=== PATIENT | female | born 1980 | race Caucasian/White ===

== ENCOUNTER 2018-07-04 14:45 | Emergency (ER) | payer MEDICARE, MEDICAID, SELFPAY ==
[2018-07-04] VITALS (46 sets, daily range): BP systolic 60–136; BP diastolic 31–82; PULSE 82–132; RESP 11–33; TEMP 36.5–37.5; O2SAT 91–99
--- NOTE | 2018-07-04 14:44 | DI.CT_ITS ---
SYMPTOM/DIAGNOSIS: FACIAL CONTUSION, DRUNK NONCONTRAST HEAD CT: Comparison is made with 05/23/18. No intracranial hemorrhage, midline shift or mass effect is identified. The ventricles and sulci are consistent with the patient's age. There is mild mucosal thickening in the maxillary sinuses bilaterally. No fluid levels are seen in the sinuses. The remaining visualized paranasal sinuses are clear. The mastoid air cells are well pneumatized. The calvarium is intact. There is mild nas-orbital soft tissue swelling seen bilaterally, left greater than right. IMPRESSION: 1. No skull fracture or acute intracranial process. 2. Mild bilateral nas-orbital soft tissue swelling. CERVICAL SPINE CT: Multiple contiguous axial images of the cervical spine were obtained. Sagittal and coronal reformatted images were evaluated on the Siemens work station. Comparison examination is 05/23/18. There is normal alignment of the cervical spine. No acute fractures or subluxations are seen. The prevertebral soft tissues are unremarkable. No central spinal canal stenosis is present. IMPRESSION: No acute fractures or subluxations of the cervical spine. FACIAL CT: Multiple contiguous axial images of the face were obtained. Sagittal and coronal reformatted images were evaluated on the Siemens work station. Comparison CT scan of the head is 05/23/18. There is no acute fracture or dislocation seen in the face. There is mild nas-orbital soft tissue swelling bilaterally, left greater than right. The orbits and retro-orbital soft tissues are unremarkable. There is mild mucosal thickening in the maxillary sinuses. The remaining visualized paranasal sinuses are clear. No fluid levels are present. The temporomandibular joints are intact. IMPRESSION: No acute fracture or dislocation of the face. Nas-orbital soft tissue swelling bilaterally.
--- NOTE | 2018-07-04 15:08 | ED.GENADUL_ITS ---
Discharge Plan Disposition Patient Disposition: [facility] Condition: Stable Discharge Details Chief Complaint: ETOHWithdr Clinical Impression: Delirium tremens, Alcohol withdrawal Reason For Visit: DAYDAY Primary Care Provider: DALLAS ASH ED Provider: Owen Li Home Meds and New Rx's Prescriptions: No Action pregabalin [Lyrica] 75 MG capsule 75 mg PO BID RF: 0 ondansetron 4 MG tablet,disintegrating 4 mg PO Q6H PRN PRNQty: 20 RF: 0 clonidine HCl 0.1 mg Tablet 0.1 mg PO BID RF: 0 Medical Decision Making This is a pleasant 37-year-old female with a past medical history of severe alcohol use, and delirium tremens. She was recently discharged from rehab and began drinking immediately. She drinks 1 gallon of vodka per day. She was found outside intoxicated late last night, and was brought to the police department for sobering. However while they are they are concerned that she was not safe for their facility, and sent to the ER for further evaluation. On exam the patient does appear notably agitated, tachycardic, and suffering from early DTs. We will start Ativan, rehydrate, banana bag, get a CT of her head neck and face for abrasions that are noted from a fall last night. We will update her tetanus. 5 PM Patient's laboratory workup has returned relatively benign, bicarb is slightly low at 18, electrolytes are normal, anion gap is 22 most likely secondary to her chronic alcohol use, dehydration, normal TSH, and alcohol of 75.9. The patient has tolerated the Ativan very well, however she has been requiring re- dosing of 2 mg doses every 1-1.5 hours. Because of the need for continued Ativan, the concern for DTs, and the patient's concerning history she will require admission. Unfortunately we have no beds available at this time, and the patient will require transfer. We did contact [facility] as this is close to the patient's home, I spoke with Dr. Grimm and she agrees with the assessment and plan, and agreed to accept the patient to the MedSurg/stepdown unit at [facility]. Patient will be transferred by [facility]. I have extensively reviewed the treatment plan with the patient. I have addressed all patient concerns at this time. I have also discussed the plan with the admitting physician and they agree with the current assessment and plan and have agreed to assume responsibility for the patient. All parties demonstrate verbal understanding and agreement with our assessment and plan at this time. IMPRESSION: 1. No acute fractures. 2. Mild soft tissue swelling and subcutaneous contusion is seen in the periorbital regions bilaterally especially on the left. 3. Minimal mucosal thickening of the maxillary sinuses bilaterally. HPI General Date/Time Provider Initiated Documentation: 07/04/18 14:48 . HPI Narrative: This is a 37-year-old female with a past medical history of thrombocytopenia, delirium tremens, alcohol withdrawals, who drinks 1 gallon of vodka per day, and past surgical history of a who presents today for evaluation of DTs. Patient states that she was recently in rehab, but is soon as she left that she started drinking again. Patient states that last night she fell and hit her face, EMS was called and the patient was eventually brought to skilled nursing for sobering. Penitentiary they were concerned that the patient may end to be undergoing DTs, and she was sent here for further evaluation. Currently the patient is extremely anxious, jittery, nauseous. She does admit to some facial pain, denies any signal blurry vision, double vision, headache, numbness tingling or weakness. She denies any other complaints at this time. No other modifying factors. She denies any pertinent family history, or any recent surgical history. Related Data Home Medications Medication Instructions Recorded Confirmed ondansetron 4 mg PO Q6H PRN PRN #20 tabef 10/16/15 05/23/18 pregabalin [Lyrica] 75 mg PO BID 10/16/15 05/23/18 clonidine HCl 0.1 mg PO BID 05/23/18 05/23/18 Previous Rx's Medication Instructions Recorded ondansetron 4 mg PO Q6H PRN PRN #20 tabef 10/16/15 Allergies Allergy/AdvReac Type Severity Reaction Status Date / Time buspirone [From BuSpar] Allergy Unverified 05/23/18 08:04 General Stated Complaint: ETOHWithdr ALBIN: 2 Review of Systems Review of Systems All systems reviewed & are unremarkable except as noted in HPI and below Exam Narrative Exam Narrative: 1.Const: Well-nourished, Well-developed, appearing stated age 2.Eyes: PERRL, no conjunctival injection, and symmetrical lids. 3.ENT: Atraumatic external nose and ears. Moist MM. Patient does demonstrate mild bruising around the inferior orbit, and mild abrasions over the cheeks bilaterally. No evidence of ocular entrapment. Neck: Symmetric, trachea midline , No thyromegaly. There is no evidence of raccoon eyes, welch sign, CSF rhinorrhea, mastoid tenderness, cranial crepitus, hemotympanum, exophthalmos, or hyphema. Patient demonstrates intact dentition with no signs of tooth avulsion or fracture, no signs of jaw deformity, no evidence of a LeFort's fracture, with an intact palate, nose and orbital region. There is no evidence of a nasal septal hematoma. No proptosis. Jaw closes symmetrically. Airway is clear. 4.CVS: +S1/S2, No murmurs or gallops. Peripheral pulses 2+ and equal in all extremities. Brisk capillary refill in all extremities. 5.RESP: Unlabored respiratory effort. Clear to auscultation bilaterally. No wheezes rales or rhonchi 6.GI: Soft, Nontender/Nondistended, No hepatosplenomegaly. No guarding or rebound. 7.MSK: Normocephalic/Atraumatic, Extremities w/o deformity or ttp No cyanosis or clubbing, Normal movement of all extremities no midline tenderness to palpation over the CTLS spine. Normal ROM in flexion, extension, side bend, and rotation. Patient has +5 out of 5 strength in the lower extremities in dorsiflexion and plantarflexion, knee flexion and extension, hip flexion and extension. There is +2 over 2 dorsalis pedis pulses bilaterally. There is normal sensation to the skin with light touch at the foot, knee, and hip. Normal saddle sensation. Good sensation over the deep sural nerve area bilaterally. Rectal exam deferred. Reflexes are +2 over 4 in the patellar reflex bilaterally. +5 out of 5 strength in the medial, ulnar, radial nerve distribution bilaterally in the hands as well as intact light touch sensation to these dermatomes on the hands 8.Skin: Warm, Dry. No rashes or lesions. 9.Neuro: recruitment specialist II-XII grossly intact. Sensation grossly intact, no focal neurologic deficits. 10.Psych: (AAO) x3. Appropriate mood and affect. Notably intoxicated. Course Vital Signs Temperature 36.5 C 07/04/18 14:49 Pulse 127 H 07/04/18 14:49 Respiratory Rate 30 H 07/04/18 14:49 Blood Pressure 120/82 07/04/18 14:49 Pulse Oximetry 98 07/04/18 14:49 Temperature 36.5 C 07/04/18 14:49 Temperature Source Temporal Artery Scan 07/04/18 14:49 Pulse 127 H 07/04/18 14:49 Respiratory Rate 30 H 07/04/18 14:49 Blood Pressure 120/82 07/04/18 14:49 Blood Pressure Position Supine 07/04/18 14:49 Pulse Oximetry 98 07/04/18 14:49 Oxygen Delivery Method Room Air 07/04/18 14:49 Oxygen Flow Rate 0 07/04/18 14:49 Pain Level 10 07/04/18 14:49
[2018-07-04 15:13] LABS: Abs Immature Grans 0.02 k/cumm (0.0-0.09); Absolute Basophil Count 0.01 k/cumm (0.0-0.2); Absolute Lymphocyte Count 1.71 k/cumm (1.2-3.4); Absolute Monocyte Count 0.42 k/cumm (0.11-0.7); Absolute Neutrophil Count 5.07 k/cumm (1.2-6.7); Basophils % 0.1; HCT 42.8 % (36.0-46.0); HGB 14.8 g/dL (12.0-15.5); Immature Grans % 0.3; Lymphocytes % 23.7; Mean Corp. HGB Concentration 34.6 g/dL (32.0-36.0); Mean Corpuscular Hemoglobin 33.2 pg (27.0-33.0); Monocytes % 5.8; Neutrophils % 70.1; Platelet Count 172 x1000/uL (130-400); RBC 4.46 m/cumm (4.00-5.20); RBC Distribution Width 13.6 % (11.7-14.6); White Blood Cell Count 7.23 k/cumm (4.4-10.8)
[2018-07-04] MEDS: Lactated Ringers 1,000 ML 1000 ML IV (15:14)
[2018-07-04] MEDS: LORazepam 2 MG/ML VIAL IM (15:15)
[2018-07-04] MEDS: Ondansetron 4 MG/2 ML VIAL IVP (15:15)
[2018-07-04] MEDS: MAGNESIUM SULFATE 8.12 MEQ, MULTIVITAMIN 10 ML, THIAMINE 100 MG, FOLIC ACID 1 MG in Nor... 168.867 MG IV (15:15)
[2018-07-04 15:25] LABS: ALT 23 U/L (12-78); AST 30 U/L (15-37); Alkaline Phosphatase 101 U/L (46-116); Anion Gap 22.8 mmol/L (3-11); BUN 8 mg/dL (7-18); Bilirubin, Total 0.5 mg/dL (0.2-1.0); CO2 18.2 mmol/L (21.0-32.0); CREATININE 0.57 mg/dL (0.55-1.02); Calcium 8.4 mg/dL (8.5-10.1); Chloride 97 mmol/L (98-107); ETHANOL BLOOD 75.9 mg/dL (<3); Glucose 86 mg/dL (70-100); Potassium 3.6 mmol/L (3.5-5.1); Sodium 138 mmol/L (136-145); Total Protein 8.1 g/dL (6.4-8.2)
[2018-07-04 15:47] LABS: TSH 0.78 uIU/mL (0.358-3.74)
[2018-07-04] MEDS: LORazepam 2 MG/ML VIAL IVP ×2 (16:12→18:58)
--- NOTE | 2018-07-04 16:32 | DI.VRAD_ITS ---
EXAM: CT Head Without Intravenous Contrast EXAM DATE/TIME: 07/04/2018 3:19 PM CLINICAL HISTORY: 37 years old, female; Injury or trauma; Fall; Initial encounter; Blunt trauma (contusions or hematomas) TECHNIQUE: Axial computed tomography images of the head/brain without intravenous contrast. Coronal and sagittal reformatted images were created and reviewed. COMPARISON: No relevant prior studies available. FINDINGS: Brain: Normal. No hemorrhage. No significant white matter disease. No edema. Ventricles: Normal. No ventriculomegaly. Bones/joints: Normal. No acute fracture. Sinuses: Minimal mucosal thickening of the maxillary sinuses bilaterally. No acute sinusitis. Mastoid air cells: Normal as visualized. No mastoid effusion. Soft tissues: Mild soft tissue swelling and subcutaneous contusion is seen in the periorbital regions bilaterally especially on the left. IMPRESSION: 1. No acute intracranial abnormality. The brain appears normal. 2. Mild soft tissue swelling and subcutaneous contusion is seen in the periorbital regions bilaterally especially on the left. 3. Minimal mucosal thickening of the maxillary sinuses bilaterally. EXAM: CT Maxillofacial Without Intravenous Contrast EXAM DATE/TIME: 07/04/2018 3:19 PM CLINICAL HISTORY: 37 years old, female; Injury or trauma; Fall; Initial encounter; Blunt trauma (contusions or hematomas) TECHNIQUE: Axial computed tomography images of the face without intravenous contrast. Coronal and sagittal reformatted images were created and reviewed. COMPARISON: No relevant prior studies available. FINDINGS: Bones/joints: No acute maxillofacial or orbital fracture. The mandible and temporomandibular joints are normal. Soft tissues: Mild soft tissue swelling and subcutaneous contusion is seen in the periorbital regions bilaterally especially on the left. Orbits: No acute intraorbital abnormality. Globes are unremarkable Sinuses: Minimal mucosal thickening of the maxillary sinuses bilaterally. No air-fluid levels. IMPRESSION: 1. No acute fractures. 2. Mild soft tissue swelling and subcutaneous contusion is seen in the periorbital regions bilaterally especially on the left. 3. Minimal mucosal thickening of the maxillary sinuses bilaterally. EXAM: CT Cervical Spine Without Intravenous Contrast EXAM DATE/TIME: 07/04/2018 3:19 PM CLINICAL HISTORY: 37 years old, female; Injury or trauma; Fall; Initial encounter; Blunt trauma (contusions or hematomas) TECHNIQUE: Axial computed tomography images of the cervical spine without intravenous contrast. Coronal and sagittal reformatted images were created and reviewed. COMPARISON: No relevant prior studies available. FINDINGS: Vertebrae: No acute fracture. Normal alignment. Discs/Spinal canal/Neural foramina: No spinal stenosis. No neural foraminal narrowing. Soft tissues: Unremarkable. IMPRESSION: No acute findings. Dictated and Authenticated by: Yonny Chaney MD. Ordering:RANDEE MCCLELLAN MD
[2018-07-04] MEDS: Normal Saline 1,000 ML 1000 ML IV (16:54)
== END 2018-07-04 19:19 | disposition short-term general hospital (02) ==
PROVIDERS: Emergency Provider Student in an Organized Health Care Education/Training Program; PCP Family Medicine
DX: F10.231 Alcohol dependence with withdrawal delirium (principal); Y90.3 Blood alcohol level of 60-79 mg/100 ml; S00.12XA Contusion of left eyelid and periocular area, initial encounter; W18.30XA Fall on same level, unspecified, initial encounter
CPT/HCPCS: 36415; 80053; 96361; 96365; 96366; 96372; 96375; 96376; 99285; 70450; 70486; 72125; 80320; 84443; 85025; J2060; J2405

== ENCOUNTER 2018-08-12 09:08 | Inpatient (IN) | payer MEDICARE, MEDICAID, SELFPAY ==
[2018-08-12] VITALS (34 sets, daily range): BP systolic 105–136; BP diastolic 61–78; PULSE 78–134; RESP 12–48; TEMP 36.5–38.1; O2SAT 94–100
--- NOTE | 2018-08-12 09:28 | W.ED.GENAD ---
Discharge Plan Disposition Patient Disposition: [facility] Condition: Fair Discharge Details Chief Complaint: ETOHWithdr Clinical Impression: Alcohol withdrawal, Alcoholic ketoacidosis, Vomiting, Chronic alcohol abuse Reason For Visit: ALCOHOL WITHDRAWL Admit Date/Time: 08/12/18 12:52 Admit Provider: Cielo Woodward Attending Provider: Cielo Woodward Primary Care Provider: DALLAS ASH ED Provider: Ely Lao Discharge Data Discharge Date/Time-TO BE ENTERED AT DEPARTURE: 08/12/18 12:52 Medical Decision Making 37yo F presents from police protective custody w/ a h/o chronic alcohol abuse and DT's who presents for concern for alcohol withdrawal. Last drink yesterday afternoon. Heart rate 110s. Blood pressure normal. Remainder vitals within normal limits. Patient appears mildly diaphoretic with mild-moderate shaking of hands. Main concern for mild alcohol withdrawal. Will place an IV, bolus IVF, ativan prn, labs, ekg, cxr, ua, UDS. EKG notes a rate of 95, sinus, T wave inversion noted in V2. No acute ST elevation or depression. QTc 475. QRS 86. 1110 --labs reviewed and note sodium 133, bicarb 16, anion gap 21, glucose 49, magnesium 1.6, troponin negative. Alcohol negative. Appears c/w alcoholic ketoacidosis. Will give pt food. Unable to obtain a urine and urine , will send for serum . Pt's HR improved to 90s and symptoms improved after ativan. HR now back to 100-110s. Will give more IVF, dose of zofran, another dose of ativan. 1130 -- d/w hospitalist - accepts pt for admission. Pt sat up while eating and her HR increased to 120s. EKG done at noted a HR of 125, sinus, no acute ST findings. QTc 490. QRS 84. Medical Records Medical records reviewed: Yes I reviewed the patient's medical records. Lab Data Lab results reviewed: Yes I reviewed the patient's lab results. Laboratory Tests Range/Units 08/12/18 08/12/18 08/12/18 10:20 10:20 10:20 WBC (4.4-10.8) k/cumm 6.06 RBC (4.00-5.20) m/cumm 4.21 Hgb (12.0-15.5) g/dL 13.4 Hct (36.0-46.0) % 40.6 MCV (80-95) fL 96.4 H MCH (27.0-33.0) pg 31.8 MCHC (32.0-36.0) g/dL 33.0 RDW (11.7-14.6) % 12.6 Plt Count (130-400) x1000/uL 198 MPV (8.0-11.0) fL 9.0 Immature Gran % 0.2 Neutrophils % 71.9 Lymphocytes % 20.6 Monocytes % 7.1 Eosinophils % 0.0 Basophils % 0.2 Absolute Neutrophils (1.2-6.7) k/cumm 4.36 Absolute Lymphocytes (1.2-3.4) k/cumm 1.25 Absolute Monocytes (0.11-0.7) k/cumm 0.43 Absolute Eosinophils (0.0-0.7) k/cumm 0.00 Absolute Basophils (0.0-0.2) k/cumm 0.01 Sodium (136-145) mmol/L 133 L Potassium (3.5-5.1) mmol/L 4.3 Chloride (98-107) mmol/L 95 L Carbon Dioxide (21.0-32.0) mmol/L 16.7 L Anion Gap (3-11) mmol/L 21.3 H BUN (7-18) mg/dL 8 Creatinine (0.55-1.02) mg/dL 0.53 L Estimated GFR/1.73 m2 (mL/min/1.73m2) >= 60.00 Glucose (70-100) mg/dL 49 L Calcium (8.5-10.1) mg/dL 9.0 Magnesium (1.8-2.4) mg/dL 1.6 L Total Bilirubin (0.2-1.0) mg/dL 0.8 AST (15-37) U/L 30 ALT (12-78) U/L 25 Alkaline Phosphatase (46-116) U/L 111 Troponin I (0.00-0.06) ng/mL < 0.02 Total Protein (6.4-8.2) g/dL 8.3 H Albumin (3.4-5.0) g/dL 4.3 Lipase (73-393) U/L 72 L Serum HCG, Qual Urine Color (Yellow) Urine Clarity Urine pH (5-8) Ur Specific [place] (1.005-1.025) Urine Protein (Negative) mg/dL Urine Ketones (Negative) mg/dL Urine Blood (Negative) Urine Nitrite (Negative) Urine Bilirubin (Negative) Urine Urobilinogen (Up TO 0.2) EU/dL Ur Leukocyte Esterase (Negative) Urine RBC (0-2) Urine WBC (0-5) HPF Ur Epithelial Cells (Negative) HPF Urine Crystals (Negative) HPF Urine Bacteria (Negative) HPF Urine Casts (Negative) LPF Urine Mucus (Negative) Ur Culture Indicated? Urine Glucose (Negative) mg/dL Ethyl Alcohol (<3) mg/dL < 3.0 Range/Units 08/12/18 08/12/18 08/12/18 10:20 11:32 12:00 WBC (4.4-10.8) k/cumm RBC (4.00-5.20) m/cumm Hgb (12.0-15.5) g/dL Hct (36.0-46.0) % MCV (80-95) fL MCH (27.0-33.0) pg MCHC (32.0-36.0) g/dL RDW (11.7-14.6) % Plt Count (130-400) x1000/uL MPV (8.0-11.0) fL Immature Gran % Neutrophils % Lymphocytes % Monocytes % Eosinophils % Basophils % Absolute Neutrophils (1.2-6.7) k/cumm Absolute Lymphocytes (1.2-3.4) k/cumm Absolute Monocytes (0.11-0.7) k/cumm Absolute Eosinophils (0.0-0.7) k/cumm Absolute Basophils (0.0-0.2) k/cumm Sodium (136-145) mmol/L Potassium (3.5-5.1) mmol/L Chloride (98-107) mmol/L Carbon Dioxide (21.0-32.0) mmol/L Anion Gap (3-11) mmol/L BUN (7-18) mg/dL Creatinine (0.55-1.02) mg/dL Estimated GFR/1.73 m2 (mL/min/1.73m2) Glucose (70-100) mg/dL Calcium (8.5-10.1) mg/dL Magnesium (1.8-2.4) mg/dL Total Bilirubin (0.2-1.0) mg/dL AST (15-37) U/L ALT (12-78) U/L Alkaline Phosphatase (46-116) U/L Troponin I (0.00-0.06) ng/mL Total Protein (6.4-8.2) g/dL Albumin (3.4-5.0) g/dL Lipase (73-393) U/L Serum HCG, Qual Negative Cancelled Urine Color (Yellow) Yellow Urine Clarity Clear Urine pH (5-8) 5.5 Ur Specific [place] (1.005-1.025) >= 1.030 H Urine Protein (Negative) mg/dL Trace H Urine Ketones (Negative) mg/dL >=160 H Urine Blood (Negative) Negative Urine Nitrite (Negative) Negative Urine Bilirubin (Negative) Negative Urine Urobilinogen (Up TO 0.2) EU/dL 0.2 Ur Leukocyte Esterase (Negative) Negative Urine RBC (0-2) Negative Urine WBC (0-5) HPF Negative Ur Epithelial Cells (Negative) HPF Few Urine Crystals (Negative) HPF Negative Urine Bacteria (Negative) HPF Negative Urine Casts (Negative) LPF Negative Urine Mucus (Negative) Negative Ur Culture Indicated? No Urine Glucose (Negative) mg/dL Negative Ethyl Alcohol (<3) mg/dL ECG Data Attestation: I personally reviewed and interpreted this ECG (s) as follows: Interpretation: EKG #1: Heart rate 95, sinus, T wave inversion in V2, no acute ST elevation or depression. QTc 475. QRS 86. EKG #2: Heart rate 125, no acute ST elevation or depression, QTC 490, QRS 84. HPI General Mode of arrival: ambulatory. Date/Time Provider Initiated Documentation: 08/12/18 09:13. Limitations to Documentation: no limitations. Information obtained by: patient. HPI Narrative: Patient is a 37-year-old female with a history of chronic alcohol abuse and DT's who presents for concern for alcohol withdrawal. Patient was in police protective custody since yesterday due to public intoxication. Patient was brought to [facility] this morning while under protective custody for detox and ambulance was called for concern for possible withdrawal to take her to the emergency department. Patient states she drinks 1/2 gallon of vodka daily. States her last drink was yesterday afternoon. She states she has been vomiting and shaking. Related Data Home Medications Medication Instructions Recorded Confirmed clonidine HCl 0.1 mg PO BID 05/23/18 08/12/18 trazodone 100 mg PO HS 07/04/18 08/12/18 duloxetine [Cymbalta] 30 mg PO DAILY 08/12/18 08/12/18 duloxetine [Cymbalta] 60 mg PO HS 08/12/18 08/12/18 gabapentin 600 mg PO TID 08/12/18 08/12/18 hydroxyzine HCl 50 mg PO TID PRN PRN 08/12/18 08/12/18 melatonin 3 mg PO HS 08/12/18 08/12/18 multivitamin 1 tab PO DAILY 08/12/18 08/12/18 pregabalin [Lyrica] 100 mg PO BID 08/12/18 08/12/18 vitamin B complex 1 tab PO DAILY 08/12/18 08/12/18 Allergies Allergy/AdvReac Type Severity Reaction Status Date / Time buspirone [From BuSpar] Allergy Unverified 08/12/18 09:56 General Stated Complaint: ETOHWithdr ALBIN: 2 Review of Systems Review of Systems All systems reviewed & are unremarkable except as noted in HPI and below Constitutional Reports as per HPI, Denies chills and Denies fever(s) Eyes Denies blurry vision ENT Denies dizziness, Denies sore throat and Denies throat swelling Cardiovascular Denies chest pain and Denies dyspnea Respiratory Denies dyspnea Gastrointestinal Denies abdominal pain, Denies diarrhea and Reports vomiting Genitourinary Denies hematuria and Denies dysuria Musculoskeletal Denies back pain and Denies numbness Integumentary/Breasts Denies lesions and Denies rash Neurologic Denies dizziness and Denies numbness Allergic/Immunologic Denies throat swelling PFSH Paresthesia (Chronic) Alcoholism (Chronic) Alcohol withdrawal seizure (Resolved) Family History Father Alcohol abuse Mother Alcohol abuse History of (Resolved) Family History Father Alcohol abuse Mother Alcohol abuse Medical History Paresthesia (Chronic) Alcoholism (Chronic) Alcohol withdrawal seizure (Resolved) Social History number of children: 1 Smoking/Tobacco Use Status: Current every day tobacco type: cigarettes alcohol intake: current alcohol intake frequency: 3 or more drinks per day Alcohol type: hard liquor counseling given: Yes substance use type: does not use Surgical History History of (Resolved) Social History number of children: 1 Smoking/Tobacco Use Status: Current every day tobacco type: cigarettes alcohol intake: current alcohol intake frequency: 3 or more drinks per day Alcohol type: hard liquor counseling given: Yes substance use type: does not use Exam Const General: cooperative and healthy appearing Orientation: alert and awake HENMT Head: normal to inspection Ears: hearing grossly normal bilaterally and external ears normal General nose exam: external nose normal Face and sinus: normal facial exam Mouth: oral mucosae normal Eyes General: appearance normal, both eyes and all related structures Eyelids: eyelids normal Pupils: PERRL EOM: EOM intact bilaterally Neck Neck: normal visual inspection Lymphatic: no lymphadenopathy noted Chest Chest: normal inspection of the chest Resp Effort & Inspection: normal respiratory effort and able to speak in complete sentences Auscultation: clear to auscultation bilaterally Cardio Rate: regular rate Rhythm: regular rhythm GI Inspection: normal to inspection Palpation: soft, not firm, no guarding, no hepatosplenomegaly, no masses and nontender Auscultation: normal bowel sounds Skin General skin exam: no rashes or lesions noted Neuro General: alert, awake, oriented x3, moves all extremities, no meningeal signs and no focal motor deficits Cognition: normal cognition Speech: speech normal Gait: normal gait Motor: muscle tone normal throughout and other (no clonus. Shaking of hands noted ) Sensory Exam: no sensory deficits noted Extrem General: normal to inspection, full ROM, normal capillary refill and no edema Psych Appearance: grossly normal Mental Status: mental status grossly normal Speech and Movement: speech and movement normal Affect: normal affect Thought Process: normal Course Vital Signs Temperature 97.7 F 08/12/18 09:17 Pulse 110 H 08/12/18 09:17 Respiratory Rate 20 08/12/18 09:17 Blood Pressure 110/68 08/12/18 09:17 Pulse Oximetry 94 L 08/12/18 09:17 Temperature 97.7 F 08/12/18 09:17 Temperature Source Temporal Artery Scan 08/12/18 09:17 Pulse 110 H 08/12/18 09:17 Respiratory Rate 20 08/12/18 09:17 Blood Pressure 110/68 08/12/18 09:17 Pulse Oximetry 94 L 08/12/18 09:17 Oxygen Delivery Method Room Air 08/12/18 09:17 Oxygen Flow Rate 0 08/12/18 09:17 Pain Level 5 08/12/18 09:17
[2018-08-12] MEDS: LORazepam 2 MG/ML VIAL 1 MG IM (09:55)
[2018-08-12 10:50] LABS: Abs Immature Grans 0.01 k/cumm (0.0-0.09); Absolute Basophil Count 0.01 k/cumm (0.0-0.2); Absolute Lymphocyte Count 1.25 k/cumm (1.2-3.4); Absolute Monocyte Count 0.43 k/cumm (0.11-0.7); Absolute Neutrophil Count 4.36 k/cumm (1.2-6.7); Basophils % 0.2; HCT 40.6 % (36.0-46.0); HGB 13.4 g/dL (12.0-15.5); Immature Grans % 0.2; Lymphocytes % 20.6; Mean Corpuscular Hemoglobin 31.8 pg (27.0-33.0); Mean Corpuscular Volume 96.4 fL (80-95); Monocytes % 7.1; Neutrophils % 71.9; Platelet Count 198 x1000/uL (130-400); RBC 4.21 m/cumm (4.00-5.20); RBC Distribution Width 12.6 % (11.7-14.6); White Blood Cell Count 6.06 k/cumm (4.4-10.8)
[2018-08-12 10:58] LABS: ALT 25 U/L (12-78); AST 30 U/L (15-37); Albumin 4.3 g/dL (3.4-5.0); Alkaline Phosphatase 111 U/L (46-116); Anion Gap 21.3 mmol/L (3-11); BUN 8 mg/dL (7-18); Bilirubin, Total 0.8 mg/dL (0.2-1.0); CO2 16.7 mmol/L (21.0-32.0); CREATININE 0.53 mg/dL (0.55-1.02); Chloride 95 mmol/L (98-107); Glucose 49 mg/dL (70-100); Lipase 72 U/L (73-393); Magnesium 1.6 mg/dL (1.8-2.4); Potassium 4.3 mmol/L (3.5-5.1); Sodium 133 mmol/L (136-145); Total Protein 8.3 g/dL (6.4-8.2)
[2018-08-12 11:05] LABS: Troponin I < 0.02 ng/mL (0.00-0.06)
[2018-08-12 11:22] LABS: ETHANOL BLOOD < 3.0 mg/dL (<3)
[2018-08-12] MEDS: Ondansetron 4 MG/2 ML VIAL IVP (11:27)
[2018-08-12 12:06] LABS: Bilirubin Negative (Negative); Blood Negative (Negative); Clarity Clear; Glucose Negative (Negative); Ketones >=160 mg/dL (Negative); Leukocyte Esterase Negative (Negative); Nitrite Negative (Negative); Specific Gravity >= 1.030 (1.005-1.025); Urobilinogen 0.2 EU/dL (Up TO 0.2); pH 5.5 (5-8)
[2018-08-12 12:06] LABS: HCG Qual (Serum) Negative
[2018-08-12 12:30] LABS: Bacteria Negative HPF (Negative); C & S Indicated? No; Casts Negative LPF (Negative); Crystals Negative HPF (Negative); Epithelial Cells Few HPF (Negative); Mucus Negative (Negative); RBC Negative (0-2); WBC Negative HPF (0-5)
[2018-08-12] MEDS: LORazepam 2 MG/ML VIAL 1 MG IVP (12:39)
[2018-08-12] MEDS: Normal Saline 1,000 ML 1000 ML IV (13:00)
[2018-08-12] MEDS: THIAMINE 100 MG in Normal Saline 100 ML 200 MG IVPB (14:01)
[2018-08-12] MEDS: DEXTROSE 5%-0.9% SALINE 1,000 ML 100 ML IV (14:56)
[2018-08-12] MEDS: MAGNESIUM SULFATE 1 GM/100 ML BAG IVPB ×2 (14:57→16:53)
[2018-08-12] MEDS: LORazepam 1 MG TAB PO/SL ×3 (15:08→21:11)
--- NOTE | 2018-08-12 15:34 | HPE_ITS ---
Date of service: 08/12/18 Time of Service: 15:10 Assessment and Plan (1) Alcohol withdrawal: Current visit: Yes Status: Acute Patient has a history of DT's and withdrawal seizures. Will monitor on telemetry with CIWA/prn ativan, IV fluids, multivitamins, thiamine, folate. Checking B12 and folic acid levels. Monitor and replete lytes. Patient is interested in outpatient alcohol program. (2) Hypoglycemia: Current visit: Yes Status: Acute Likely due to alcohol abuse/impaired gluconeogenesis. Patient will be on D5 IV fluids (s/p IV thiamine). Monitor accuchecks Q12 hrs. Hypoglycemia protocol in place. Encourage PO intake. (3) Hypomagnesemia: Current visit: Yes Status: Acute Repleted. Monitor. (4) Alcoholic ketoacidosis: Current visit: Yes Status: Acute Patient is written for a diet - expected to resolve. (5) Tobacco abuse: Current visit: Yes Status: Chronic Patient requests a nicotine patch. 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 Continue cymbalta. Check B12 level. (7) Anxiety and depression: Current visit: Yes Status: Chronic Continue cymbalta, trazodone, prn hydroxyzine. Has prn ativan written for anxiety while going through withdrawal. (8) DVT prophylaxis: Current visit: Yes Status: Acute Not required in an ambulatory patient under 40. (9) Discharge planning issues: Current visit: Yes Status: Acute Patient is interested in outpatient alcohol rehab. Full code. (10) Tobacco abuse counseling: Current visit: Yes Status: Acute provided. Will rx nicotine patch. History of Present Illness Chief Complaint: I'm detoxing off alcohol Narrative: 37 year-old female with PMHx of alcohol abuse with prior history of DT's and alcohol withdrawal seizures, who normally consumes 1/2 of a gallon of vodka per day and last had a drink yesterday, who also has a history of alcoholic neuropathy, anxiety and depression (for which she is on disability), who was brought in to [facility] ED today from correction because the patient was noted to be going into alcohol withdrawal. On arrival to ER, the patient was diaphoretic , anxious, tremulous, nauseated. It is unclear, however, whether all of this was due to withdrawal because at the time her blood glucose level was 49. She felt better after a combination of ativan as well as food and IV fluids. We were asked to admit the patient for monitoring during alcohol withdrawal, as she is at a high risk of having withdrawal seizures. Review of Systems Review of Systems 12 systems reviewed. Pertinent positives and negatives are as per HPI. PFSH Alcohol abuse (Chronic) Tobacco abuse (Chronic) TBI (traumatic brain injury) (Chronic) Cerebral hemorrhage following injury (Resolved) Seizure due to alcohol withdrawal (Resolved) Alcoholic peripheral neuropathy (Chronic) Alcohol withdrawal (Acute) Paresthesia (Chronic) Alcoholism (Chronic) Alcohol withdrawal seizure (Resolved) Family History Father Alcohol abuse Coronary artery disease Mother Alcohol abuse Paternal Grandmother Diabetes CVA (cerebral vascular accident) Breast cancer History of (Chronic) History of (Resolved) Family History Father Alcohol abuse Coronary artery disease Mother Alcohol abuse Paternal Grandmother Diabetes CVA (cerebral vascular accident) Breast cancer Medical History Alcohol abuse (Chronic) Tobacco abuse (Chronic) TBI (traumatic brain injury) (Chronic) Cerebral hemorrhage following injury (Resolved) Seizure due to alcohol withdrawal (Resolved) Alcoholic peripheral neuropathy (Chronic) Alcohol withdrawal (Acute) Paresthesia (Chronic) Alcoholism (Chronic) Alcohol withdrawal seizure (Resolved) Social History lives independently: Yes number of children: 1 current occupational status: disabled pets and animals: Yes pets and animals: cat(s) Smoking/Tobacco Use Status: Current every day tobacco type: cigarettes alcohol intake: current alcohol intake frequency: 3 or more drinks per day Alcohol type: hard liquor counseling given: Yes details: 1/2 of a gallon of vodka daily; just had a stay at inpatient rehab substance use type: does not use Surgical History History of (Chronic) History of (Resolved) Social History lives independently: Yes number of children: 1 current occupational status: disabled pets and animals: Yes pets and animals: cat(s) Smoking/Tobacco Use Status: Current every day tobacco type: cigarettes alcohol intake: current alcohol intake frequency: 3 or more drinks per day Alcohol type: hard liquor counseling given: Yes details: 1/2 of a gallon of vodka daily; just had a stay at inpatient rehab substance use type: does not use Meds Home Medications Medication Instructions Recorded Confirmed Type clonidine HCl 0.1 mg PO BID 05/23/18 08/12/18 History trazodone 100 mg PO HS 07/04/18 08/12/18 History duloxetine [Cymbalta] 30 mg PO DAILY 08/12/18 08/12/18 History duloxetine [Cymbalta] 60 mg PO HS 08/12/18 08/12/18 History gabapentin 600 mg PO TID 08/12/18 08/12/18 History hydroxyzine HCl 50 mg PO TID PRN PRN 08/12/18 08/12/18 History melatonin 3 mg PO HS 08/12/18 08/12/18 History multivitamin 1 tab PO DAILY 08/12/18 08/12/18 History pregabalin [Lyrica] 100 mg PO BID 08/12/18 08/12/18 History vitamin B complex 1 tab PO DAILY 08/12/18 08/12/18 History Allergies Allergy/AdvReac Type Severity Reaction Status Date / Time buspirone [From BuSpar] Allergy Unverified 08/12/18 09:56 Exam Narrative Exam Narrative: General: female, appears anxious, laying in bed, mildly tremulous Neurological: A&Ox3, tremulous, no focal deficits Psychiatric: anxious, cooperative, appropriate Skin: no bruises/rashes HEENT: normocephalic, atraumatic, HEENT, PERRL, MMM, clear oropharynx, no submandibular or cervical lymphadenopathy; no goiter or JVD Cardiovascular: RRR, tachycardic, no murmurs, rubs, or gallops Lungs: CTAB Gastrointestinal: abdomen soft, nontender, nondistended Extremities: no edema, clubbing, or cyanosis. Patient refused exam of her legs and feet other than inspection due to neuropathic pain. Results Labs : 08/12/18 10:20 08/12/18 10:20 Laboratory Results - last 24 hr 08/12/18 08/12/18 08/12/18 10:20 10:20 10:20 WBC 6.06 RBC 4.21 Hgb 13.4 Hct 40.6 MCV 96.4 H MCH 31.8 MCHC 33.0 RDW 12.6 Plt Count 198 MPV 9.0 Immature Gran % 0.2 Neutrophils % 71.9 Lymphocytes % 20.6 Monocytes % 7.1 Eosinophils % 0.0 Basophils % 0.2 Absolute Neutrophils 4.36 Absolute Lymphocytes 1.25 Absolute Monocytes 0.43 Absolute Eosinophils 0.00 Absolute Basophils 0.01 Sodium 133 L Potassium 4.3 Chloride 95 L Carbon Dioxide 16.7 L Anion Gap 21.3 H BUN 8 Creatinine 0.53 L Estimated GFR/1.73 m2 >= 60.00 Glucose 49 L Calcium 9.0 Magnesium 1.6 L Total Bilirubin 0.8 AST 30 ALT 25 Alkaline Phosphatase 111 Troponin I < 0.02 Total Protein 8.3 H Albumin 4.3 Lipase 72 L Serum HCG, Qual Urine Color Urine Clarity Urine pH Ur Specific [place] Urine Protein Urine Ketones Urine Blood Urine Nitrite Urine Bilirubin Urine Urobilinogen Ur Leukocyte Esterase Urine RBC Urine WBC Ur Epithelial Cells Urine Crystals Urine Bacteria Urine Casts Urine Mucus Ur Culture Indicated? Urine Glucose Ethyl Alcohol < 3.0 08/12/18 08/12/18 08/12/18 10:20 11:32 12:00 WBC RBC Hgb Hct MCV MCH MCHC RDW Plt Count MPV Immature Gran % Neutrophils % Lymphocytes % Monocytes % Eosinophils % Basophils % Absolute Neutrophils Absolute Lymphocytes Absolute Monocytes Absolute Eosinophils Absolute Basophils Sodium Potassium Chloride Carbon Dioxide Anion Gap BUN Creatinine Estimated GFR/1.73 m2 Glucose Calcium Magnesium Total Bilirubin AST ALT Alkaline Phosphatase Troponin I Total Protein Albumin Lipase Serum HCG, Qual Negative Cancelled Urine Color Yellow Urine Clarity Clear Urine pH 5.5 Ur Specific [place] >= 1.030 H Urine Protein Trace H Urine Ketones >=160 H Urine Blood Negative Urine Nitrite Negative Urine Bilirubin Negative Urine Urobilinogen 0.2 Ur Leukocyte Esterase Negative Urine RBC Negative Urine WBC Negative Ur Epithelial Cells Few Urine Crystals Negative Urine Bacteria Negative Urine Casts Negative Urine Mucus Negative Ur Culture Indicated? No Urine Glucose Negative Ethyl Alcohol Last Vital Signs Temp 37.1 C 08/12/18 13:10 Pulse 112 H 08/12/18 13:10 Resp 17 08/12/18 13:10 BP 132/77 08/12/18 13:10 Pulse Ox 99 08/12/18 13:10
--- NOTE | 2018-08-12 15:45 | NUR.NOTE ---
received patient this evening, voiced that she is bit shaky and this is normal with her condition. She is concious alert oriented x 3, but drowsy. Chest clear throughout. Telemetry applied to patient for monitoring. Iv fluids progressing presently with magnesium sulfate also 5% detrose in 0.9% normal saline. abdomen active. Navel ring noted in place with light greenish color. Pt state she has neurotophy for the passed 4 years she experience tingling , pins and needles, alsonumbness to her extremities. patient is at risk for seizure due to alcohol withdrawal. Beds rails padded for seizure precautions.
[2018-08-12] MEDS: cloNIDine 0.1 MG TAB PO (19:18)
[2018-08-12] MEDS: Gabapentin 600 MG TAB PO (19:18)
[2018-08-12] MEDS: Pregabalin 50 MG CAP 100 MG PO (19:18)
--- NOTE | 2018-08-12 20:01 | NUR.NOTE ---
[employer] supervisor informed
[2018-08-12] MEDS: traZODone 100 MG TAB PO (21:11)
[2018-08-12] MEDS: DULoxetine 30 MG CAP 60 MG PO (21:12)
[2018-08-12] MEDS: Melatonin 3 MG TAB PO (21:13)
[2018-08-13] VITALS (9 sets, daily range): BP systolic 98–112; BP diastolic 65–75; PULSE 81–97; RESP 16–18; TEMP 36.8–37.7; O2SAT 95–99
[2018-08-13] MEDS: LORazepam 1 MG TAB PO/SL ×5 (00:12→20:48)
[2018-08-13] MEDS: Acetaminophen 325 MG TAB PO ×4 (00:13→20:48)
[2018-08-13] MEDS: DEXTROSE 5%-0.9% SALINE 1,000 ML 100 ML IV (03:36)
[2018-08-13 07:12] LABS: HCT 36.3 % (36.0-46.0); HGB 12.1 g/dL (12.0-15.5); Mean Corp. HGB Concentration 33.3 g/dL (32.0-36.0); Mean Corpuscular Hemoglobin 32.2 pg (27.0-33.0); Mean Corpuscular Volume 96.5 fL (80-95); Mean Platelet Volume 9.1 fL (8.0-11.0); Platelet Count 140 x1000/uL (130-400); RBC 3.76 m/cumm (4.00-5.20); RBC Distribution Width 12.5 % (11.7-14.6); White Blood Cell Count 3.55 k/cumm (4.4-10.8)
[2018-08-13 07:43] LABS: ALT 19 U/L (12-78); AST 23 U/L (15-37); Albumin 3.1 g/dL (3.4-5.0); Alkaline Phosphatase 83 U/L (46-116); Anion Gap 9.2 mmol/L (3-11); BUN 6 mg/dL (7-18); Bilirubin, Direct 0.16 mg/dL (0.00-0.20); Bilirubin, Total 0.8 mg/dL (0.2-1.0); CO2 22.8 mmol/L (21.0-32.0); CREATININE 0.61 mg/dL (0.55-1.02); Calcium 7.8 mg/dL (8.5-10.1); Chloride 108 mmol/L (98-107); Glucose 102 mg/dL (70-100); Potassium 3.8 mmol/L (3.5-5.1); Sodium 140 mmol/L (136-145); Total Protein 6.1 g/dL (6.4-8.2)
[2018-08-13 08:21] LABS: Vitamin B12 417 pg/mL (193-986)
[2018-08-13] MEDS: Docusate Sodium 100 MG CAP PO (09:39)
[2018-08-13] MEDS: Pregabalin 50 MG CAP 100 MG PO ×2 (09:39→20:48)
[2018-08-13] MEDS: Folic Acid 1 MG TAB PO (09:40)
[2018-08-13] MEDS: Thiamine 100 MG TAB PO (09:40)
[2018-08-13] MEDS: Vitamins B Comp w/C TAB 1 TAB PO (09:40)
[2018-08-13] MEDS: Gabapentin 600 MG TAB PO ×3 (09:40→20:48)
[2018-08-13] MEDS: Multivitamin TAB 1 TAB PO (09:40)
[2018-08-13] MEDS: DULoxetine 30 MG CAP PO (09:40)
[2018-08-13] MEDS: cloNIDine 0.1 MG TAB PO ×2 (09:41→20:48)
[2018-08-13] MEDS: Mylanta Suspension 30 ML CUP PO (09:46)
--- NOTE | 2018-08-13 12:02 | W.PM.PROGNOT ---
Date of Service Date of service: 08/13/18 Time of Service: 12:02 Assessment and Plan (1) Alcohol withdrawal: Current visit: Yes Status: Acute With history of DT's and withdrawal seizures. Symptoms improving. CIWA score 6 this morning. B12 and folate levels within normal limits. Continue telemetry, continue CIWA and PRN ativan, multivitamins, thiamine, folate. Conitnue to monitor for electrolyte abnormalities. (2) Hypoglycemia: Current visit: Yes Status: Acute Improved. Discontinue D5 IV fluids and continue to monitor blood sugars q 12 hours. (3) Hypomagnesemia: Current visit: Yes Status: Acute Improved with supplementation. (4) Alcoholic ketoacidosis: Current visit: Yes Status: Acute Anion gap improved. Tolerating foods. Discontinue D5 IV fluids. BMP in the morning. (5) Tobacco abuse: Current visit: Yes Status: Chronic Continued to have cravings on low dose nicotine replacement patch. Increased patch to 21 mg. 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 Continue outpatient regimen which includes both lyrica and gabapentin. (7) Anxiety and depression: Current visit: Yes Status: Chronic Continue cymbalta, trazodone, prn hydroxyzine. Continue PRN ativan based on CIWA scores. (8) DVT prophylaxis: Current visit: Yes Status: Acute Encourage oral intake and ambulation. (9) Discharge planning issues: Current visit: Yes Status: Acute She is a FULL code. She verbalizes interest in maintaining sobriety. She is planning to attend AA meetings and yazidi regularly upon discharge. She is reluctant to attend the outpatient program in her area. Will ask care management to provide resources for intensive outpatient programs. This case was discussed with Dr. Woodward who is in agreement. Subjective Interval history since last seen: Brooke Hyde is a 37 year-old female with PMHx of alcohol abuse with prior history of DT's and alcohol withdrawal seizures, who normally consumes 1/2 of a gallon of vodka per day, also with history of alcoholic neuropathy, anxiety and depression who is currently admitted for alcohol withdrawal. She was also noted to have hypoglycemia in the ED with a glucose level of 49. She scored 6 on the CIWA protocol this morning. She is feeling mildly better today. She has been tremulous, she has been experiencing a headache, she has diaphoretic, she is nauseated, she has a poor appetite, she has not had a BM for 4 days, she took a stool softener this morning. She feels more steady on her feet today, she continues to report tingling in her lower extremities, which is chronic for her. She denies any chest pain/pressure, palpitations, shortness of breath, coughing, wheezing, no vomiting, no urinary symptoms such as dysuria or hematuria. Her long term care social worker plan is to attend meetings and yazidi regularly. She would be interested in hearing more about intensive outpatient programs. Exam Narrative Exam Narrative: General: female, resting comfortably in bed, mildly tremulous Neurological: Awake, alert and oriented x3, no focal deficits Psychiatric: pleasant, cooperative, appropriate Skin: abrasions to left hand, bruising to dorsal aspect of right hand. HEENT: normocephalic, atraumatic, pupils are equal and round, mucous membranes moist. Neck: no JVD Cardiovascular: RRR, non-tachycardic, no murmur, rubs, or gallops Lungs: respirations even and unlabored, lung sounds clear to auscultation throughout. Gastrointestinal: abdomen soft, nontender, nondistended Extremities: Hands are swollen bilaterally. No clubbing, cyanosis or edema of bilateral lower extremities, peripheral pulses palpable. Objective Objective Clinical Data: Abnormal lab results 08/12/18 08/13/18 08/13/18 Range/Units 12:00 06:25 06:25 WBC 3.55 L D (4.4-10.8) k/cumm RBC 3.76 L (4.00-5.20) m/cumm MCV 96.5 H (80-95) fL Chloride 108 H (98-107) mmol/L BUN 6 L (7-18) mg/dL Glucose 102 H D (70-100) mg/dL Calcium 7.8 L (8.5-10.1) mg/dL Total Protein 6.1 L (6.4-8.2) g/dL Albumin 3.1 L (3.4-5.0) g/dL Ur Specific [place] >= 1.030 H (1.005-1.025) Urine Protein Trace H (Negative) mg/dL Urine Ketones >=160 H (Negative) mg/dL Vital Signs Temperature 36.8 C 12/06/18 07:55 Temperature Source Tympanic 08/13/18 07:55 Pulse 93 H 08/13/18 07:55 Pulse Rhythm Regular 08/13/18 09:30 Pulse 115 H 08/12/18 12:32 Respiratory Rate 18 08/13/18 07:55 Respiratory Effort Non-Labored 08/13/18 09:30 Respiratory Depth Normal 08/13/18 09:30 Respiratory Pattern Normal 08/13/18 09:30 Blood Pressure 103/70 08/13/18 07:55 Blood Pressure Mean 88 08/12/18 12:31 Pulse Oximetry 95 08/13/18 07:55 Oxygen Delivery Method Room Air 08/13/18 07:55 Oxygen Flow Rate 0 08/13/18 07:55 Pain Level 3 08/13/18 09:39 Comment 08/13/18 03:25 Intake & Output 08/12/18 08/13/18 08/13/18 23:59 11:59 23:59 Intake Total 2511 / 2511 1400 / 1400 Output Total 600 / 600 Balance 2511 / 2511 800 / 800 Weight 67.4 kg 66.4 kg Intake: IV 1311 / 1311 1000 / 1000 Oral 1200 / 1200 400 / 400 Output: Urine 600 / 600 Other: Urine Color Yellow Urine Appearance Clear Clear Comment VOIDED LARGE AMT IN TOILET Voiding Methods Toilet Toilet Laboratory Results WBC 3.55 k/cumm (4.4-10.8) L D 08/13/18 06:25 RBC 3.76 m/cumm (4.00-5.20) L 08/13/18 06:25 Hgb 12.1 g/dL (12.0-15.5) 08/13/18 06:25 Hct 36.3 % (36.0-46.0) 08/13/18 06:25 MCV 96.5 fL (80-95) H 08/13/18 06:25 MCH 32.2 pg (27.0-33.0) 08/13/18 06:25 MCHC 33.3 g/dL (32.0-36.0) 08/13/18 06:25 RDW 12.5 % (11.7-14.6) 08/13/18 06:25 Plt Count 140 x1000/uL (130-400) 08/13/18 06:25 MPV 9.1 fL (8.0-11.0) 08/13/18 06:25 Immature Gran % 0.2 08/12/18 10:20 Neutrophils % 71.9 08/12/18 10:20 Lymphocytes % 20.6 08/12/18 10:20 Monocytes % 7.1 08/12/18 10:20 Eosinophils % 0.0 08/12/18 10:20 Basophils % 0.2 08/12/18 10:20 Absolute Neutrophils 4.36 k/cumm (1.2-6.7) 08/12/18 10:20 Absolute Lymphocytes 1.25 k/cumm (1.2-3.4) 08/12/18 10:20 Absolute Monocytes 0.43 k/cumm (0.11-0.7) 08/12/18 10:20 Absolute Eosinophils 0.00 k/cumm (0.0-0.7) 08/12/18 10:20 Absolute Basophils 0.01 k/cumm (0.0-0.2) 08/12/18 10:20 Sodium 140 mmol/L (136-145) 08/13/18 06:25 Potassium 3.8 mmol/L (3.5-5.1) 08/13/18 06:25 Chloride 108 mmol/L (98-107) H 08/13/18 06:25 Carbon Dioxide 22.8 mmol/L (21.0-32.0) 08/13/18 06:25 Anion Gap 9.2 mmol/L (3-11) 08/13/18 06:25 BUN 6 mg/dL (7-18) L 08/13/18 06:25 Creatinine 0.61 mg/dL (0.55-1.02) 08/13/18 06:25 Estimated GFR/1.73 m2 >= 60.00 (mL/min/1.73m2) 08/13/18 06:25 Glucose 102 mg/dL (70-100) H D 08/13/18 06:25 Calcium 7.8 mg/dL (8.5-10.1) L 08/13/18 06:25 Magnesium 2.0 mg/dL (1.8-2.4) 08/13/18 06:25 Total Bilirubin 0.8 mg/dL (0.2-1.0) 08/13/18 06:25 Conjugated Bilirubin 0.16 mg/dL (0.00-0.20) 08/13/18 06:25 AST 23 U/L (15-37) 08/13/18 06:25 ALT 19 U/L (12-78) 08/13/18 06:25 Alkaline Phosphatase 83 U/L (46-116) 08/13/18 06:25 Troponin I < 0.02 ng/mL (0.00-0.06) 08/12/18 10:20 Total Protein 6.1 g/dL (6.4-8.2) L 08/13/18 06:25 Albumin 3.1 g/dL (3.4-5.0) L 08/13/18 06:25 Lipase 72 U/L (73-393) L 08/12/18 10:20 Vitamin B12 417 pg/mL (193-986) 08/13/18 06:25 Folate 16.0 ng/mL (8.6-20.0) 08/13/18 06:25 Serum HCG, Qual Cancelled 08/12/18 11:32 Urine Color Yellow (Yellow) 08/12/18 12:00 Urine Clarity Clear 08/12/18 12:00 Urine pH 5.5 (5-8) 08/12/18 12:00 Ur Specific [place] >= 1.030 (1.005-1.025) H 08/12/18 12:00 Urine Protein Trace mg/dL (Negative) H 08/12/18 12:00 Urine Ketones >=160 mg/dL (Negative) H 08/12/18 12:00 Urine Blood Negative (Negative) 08/12/18 12:00 Urine Nitrite Negative (Negative) 08/12/18 12:00 Urine Bilirubin Negative (Negative) 08/12/18 12:00 Urine Urobilinogen 0.2 EU/dL (Up TO 0.2) 08/12/18 12:00 Ur Leukocyte Esterase Negative (Negative) 08/12/18 12:00 Urine RBC Negative (0-2) 08/12/18 12:00 Urine WBC Negative HPF (0-5) 08/12/18 12:00 Ur Epithelial Cells Few HPF (Negative) 08/12/18 12:00 Urine Crystals Negative HPF (Negative) 08/12/18 12:00 Urine Bacteria Negative HPF (Negative) 08/12/18 12:00 Urine Casts Negative LPF (Negative) 08/12/18 12:00 Urine Mucus Negative (Negative) 08/12/18 12:00 Ur Culture Indicated? No 08/12/18 12:00 Urine Glucose Negative mg/dL (Negative) 08/12/18 12:00 Ethyl Alcohol < 3.0 mg/dL (<3) 08/12/18 10:20
--- NOTE | 2018-08-13 12:07 | CHAPLAIN ---
Brooke was in bed, trying to nap, when I visited. She was pleasant and engaged in a conversation telling me that her mom teaches sciences at [employer] and will be here tomorrow to pick her up of she is discharged, and that she has no other friends or family who might visit. Brooke said she is from [facility]. She asked for a copy of the Daily Bread (a daily devotional) that she said she reads every morning. She als asked from some [employer]-type books. I brought her the devotional, some books and a prayer shawl. She was meeting with HTEAL Bruce, when I returned. I will check in again with her later.
[2018-08-13] MEDS: Ondansetron 4 MG/2 ML VIAL IVP ×2 (13:45→19:13)
[2018-08-13] MEDS: Nicotine 21 MG/24 HR PATCH TD (13:52)
--- NOTE | 2018-08-13 14:32 | PDOC.CMIN ---
- If Service Date Differs Date of service: 08/13/18 Time of Service: 14:32 Care Management Initial Assess REASON FOR HOSPITALIZATION:: ETOH withdrawal, hypoglycemia PAST MEDICAL HISTORY/PAST SURGICAL HISTORY:: Alcohol withdrawal seizure, alcoholism, paresthesia, , tobacco use disorder, and ETOH dependency. PREVIOUS FUNCTIONAL STATUS/SOCIAL/FAMILY SUPPORTS:: Brooke lives in [place], [place] she was recently discharged from [facility]. She has had several rehab stays r/t alcohol dependency. States that her Mom is her main support person. She states she has a sponser through and a therapist through [facility]. Jennifer is disabled and receivies disability. She does drive and care for herself at home. CURRENT FUNCTIONAL STATUS:: Brooke is alert and engaged during CM assessment. She reviews events that led to admission. She denies alcohol was the contributing factor to recent events and admission. She states that she wanted to just have a drink prior to having the breathalizer installed in her car. She reports she has been to two AA meetings since her discharge from [facility]. She does not want to complete intensive outpatient treatment program. She does have a Medicaid nurse CM Devonte Roebrtson in [place], [place]. Brooke does not want any of her support people to know that she was using alcohol. ADVANCE DIRECTIVES:: None on file. Has patient been provided with information about the portal?: Yes Did the patient sign up for the portal?: No CODE STATUS:: Full Code INSURANCE COVERAGE / FINANCIAL ISSUES:: Medicare and Medicaid CURRENT HOME/COMMUNITY SERVICES/EQUIPMENT:: [employer] nurse bottle caser through [place], medicaid, sponser and community, probation and parole, and therapist through [facility]. PRIMARY CARE PHYSICIAN:: Luis Manuel Allen POTENTIAL DISCHARGE NEEDS:: Follow up appointment with primary care provider. Contact number is . PATIENT/FAMILY EDUCATION NEEDS:: Discharge education, limitations, community supports and education related to self care and ask me three discussion. ANTICIPATED BARRIERS TO DISCHARGE:: Complete alcohol withdrawal. TRANSPORTATION:: Via private car with Mother at time of discharge. PLAN:: Brooke is currently receiving care on the medical surgical unit. She is being monitored for ETOH withdrawal and receiving IV fluids. Brooke will be discharged home when medically ready and resume community supports. CM contacted PCP an canceled primary care appointment for today and rescheduled for 08/21/18 at 11:00 with MAKENNA Ortega at [facility] [phone]. Discharge summay should be faxed to practice at time of discharge to [phone].
--- NOTE | 2018-08-13 15:18 | INITIAL_ITS ---
- If Service Date Differs Date of service: 08/13/18 Time of Service: 14:32 Care Management Initial Assess REASON FOR HOSPITALIZATION:: ETOH withdrawal, hypoglycemia PAST MEDICAL HISTORY/PAST SURGICAL HISTORY:: Alcohol withdrawal seizure, alcoholism, paresthesia, , tobacco use disorder, and ETOH dependency. PREVIOUS FUNCTIONAL STATUS/SOCIAL/FAMILY SUPPORTS:: Brooke lives in [place], [place] she was recently discharged from [facility]. She has had several rehab stays r/t alcohol dependency. States that her Mom is her main support person. She states she has a sponser through and a therapist through [facility]. Jennifer is disabled and receivies disability. She does drive and care for herself at home. CURRENT FUNCTIONAL STATUS:: Brooke is alert and engaged during CM assessment. She reviews events that led to admission. She denies alcohol was the contributing factor to recent events and admission. She states that she wanted to just have a drink prior to having the breathalizer installed in her car. She reports she has been to two AA meetings since her discharge from [facility]. She does not want to complete intensive outpatient treatment program. She does have a Medicaid nurse CM Devonte Robertson in [place], [place]. Brooke does not want any of her support people to know that she was using alcohol. ADVANCE DIRECTIVES:: None on file. Has patient been provided with information about the portal?: Yes Did the patient sign up for the portal?: No CODE STATUS:: Full Code INSURANCE COVERAGE / FINANCIAL ISSUES:: Medicare and Medicaid CURRENT HOME/COMMUNITY SERVICES/EQUIPMENT:: [employer] nurse case management specialist through [place], medicaid, sponser and community, probation and parole, and therapist through [facility]. PRIMARY CARE PHYSICIAN:: Luis Manuel Allen POTENTIAL DISCHARGE NEEDS:: Follow up appointment with primary care provider. Contact number is . PATIENT/FAMILY EDUCATION NEEDS:: Discharge education, limitations, community supports and education related to self care and ask me three discussion. ANTICIPATED BARRIERS TO DISCHARGE:: Complete alcohol withdrawal. TRANSPORTATION:: Via private car with Mother at time of discharge. PLAN:: Brooke is currently receiving care on the medical surgical unit. She is being monitored for ETOH withdrawal and receiving IV fluids. Brooke will be discharged home when medically ready and resume community supports. CM contacted PCP an canceled primary care appointment for today and rescheduled for 08/21/18 at 11:00 with MAKENNA Ortega at [facility] [phone]. Discharge summay should be faxed to practice at time of discharge to .
[2018-08-13] MEDS: hydrOXYzine HCL 25 MG TAB 50 MG PO ×2 (16:23→19:13)
--- NOTE | 2018-08-13 17:05 | PHARADMIT ---
Addendum entered by Maldonado Ellsworth III 08/15/18 14:31: Pharmacy Note Subjective CIWA: 4-5, Provider notes that patients symptoms are improving. Objective VS-OK Temp: 37.8C Lytes, SCr, H&H,WBC-OK Plts-133 (dropping) no BM yet Assessment Lovenox started, IV fluids increased, Compazine x1 given in 1 L of NS over 1hr Plan Continue po Librium and Ativan. Original Note: Addendum entered by Ayla Cabello 08/14/18 12:38: Pharmacy Note Subjective Objective HR-91, other VS okay labs-within normal limits CIWA-12 Assessment IV fluids were discontinued chlordiazepoxide ordered TID Plan continue to watch VS, labs, CIWA and for med changes Original Note: Admission Pharmacy Clinical Review alcohol withdrawal Code Status Full Code Current Weight 66.4 kg Renally Cleared and Narrow Therapeutic Index Meds crcl ~80ml/min QTc Value / Action Taken 490 BP Control, Fever 105/75 AFEBRILE Electrolytes reviewed OK DVT Prophylaxis NO Opiate Usage / Scheduled Bowel Regimen Ordered NO/PRN Plt/SCr for Heparin / Enoxaparin 140/0.61 INR for Warfarin NA H/H stable, WBC/Bands 12.1/36.3 WBC 3.55 Antibiotic appropriateness NA Cultures and Sensitivities NA Surgical ABX d/c within 24 hr NA DM control / Insulin Dosing NA Heart Failure (Check EF%) (KAVON's, B-Block, Diuretics) IV to PO Switch ONDANSETRON IV, LORAZPEAM FOR CIWA IV PRN Home Meds Reviewed Home Meds Not Ordered ALL ORDERED Comments CIWA 12
[2018-08-13] MEDS: Normal Saline Flush 10 ML SYR IVP (19:13)
[2018-08-13] MEDS: Melatonin 3 MG TAB PO (20:48)
[2018-08-13] MEDS: traZODone 100 MG TAB PO (20:48)
[2018-08-13] MEDS: DULoxetine 30 MG CAP 60 MG PO (20:49)
[2018-08-13 21:11] LABS: Bilirubin Negative (Negative); Blood Negative (Negative); Clarity Clear; Glucose Negative (Negative); Ketones Negative (Negative); Leukocyte Esterase Negative (Negative); Nitrite Negative (Negative); Specific Gravity 1.015 (1.005-1.025); Urobilinogen 0.2 EU/dL (Up TO 0.2)
[2018-08-14] VITALS (7 sets, daily range): BP systolic 94–113; BP diastolic 65–80; PULSE 59–100; RESP 16–18; TEMP 36.4–37.3; O2SAT 94–100
[2018-08-14] MEDS: LORazepam 1 MG TAB PO/SL ×9 (00:17→22:08)
[2018-08-14] MEDS: Ondansetron 4 MG/2 ML VIAL IVP ×4 (00:18→22:07)
[2018-08-14] MEDS: Acetaminophen 325 MG TAB PO ×3 (02:29→12:42)
[2018-08-14 07:57] LABS: Anion Gap 9.3 mmol/L (3-11); BUN 7 mg/dL (7-18); CO2 25.7 mmol/L (21.0-32.0); CREATININE 0.69 mg/dL (0.55-1.02); Calcium 8.9 mg/dL (8.5-10.1); Chloride 103 mmol/L (98-107); Glucose 85 mg/dL (70-100); Sodium 138 mmol/L (136-145)
[2018-08-14] MEDS: Thiamine 100 MG TAB PO (08:13)
[2018-08-14] MEDS: cloNIDine 0.1 MG TAB PO ×2 (08:13→20:04)
[2018-08-14] MEDS: Folic Acid 1 MG TAB PO (08:13)
[2018-08-14] MEDS: DULoxetine 30 MG CAP PO (08:14)
[2018-08-14] MEDS: Pregabalin 50 MG CAP 100 MG PO ×2 (08:15→20:04)
[2018-08-14] MEDS: Gabapentin 600 MG TAB PO ×3 (08:15→20:04)
[2018-08-14] MEDS: Multivitamin TAB 1 TAB PO (08:15)
[2018-08-14] MEDS: Nicotine 21 MG/24 HR PATCH TD (08:16)
[2018-08-14] MEDS: Normal Saline Flush 10 ML SYR IVP ×3 (08:16→22:08)
[2018-08-14] MEDS: Mylanta Suspension 30 ML CUP PO (08:16)
[2018-08-14] MEDS: Vitamins B Comp w/C TAB 1 TAB PO (08:16)
[2018-08-14] MEDS: Patch Removal 1 EACH TP (08:20)
[2018-08-14] MEDS: chlordiazePOXIDE 25 MG CAP PO ×3 (10:30→20:04)
--- NOTE | 2018-08-14 12:11 | W.PM.PROGNOT ---
Date of Service Date of service: 08/14/18 Time of Service: 10:30 Assessment and Plan (1) Alcohol withdrawal: Current visit: Yes Status: Acute With history of DT's and withdrawal seizures. Symptoms continue. CIWA score 11 this morning, scores increasing overnight. B12 and folate levels within normal limits. Continue telemetry, continue CIWA and PRN ativan. Scheduled Librium added, may need dose adjustment. Continue to monitor for electrolyte abnormalities. (2) Hypoglycemia: Current visit: Yes Status: Acute Improved. Discontinue q12 hour fingersticks. (3) Hypomagnesemia: Current visit: Yes Status: Acute Improved with supplementation. Reassess Magnesium level in the morning. (4) Alcoholic ketoacidosis: Current visit: Yes Status: Acute Resolved. IV D5 fluids discontinued 08/13/18. Blood sugars stable. Gap closed. Discontinue [id number] fingersticks as above. (5) Tobacco abuse: Current visit: Yes Status: Chronic Continued cravings. Patch increased patch to 21 mg. Requesting nicotrol IH. Nicotrol IH ordered for PRN use. 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 Continue outpatient regimen which includes both lyrica and gabapentin. (7) Anxiety and depression: Current visit: Yes Status: Chronic Continue cymbalta, trazodone, prn hydroxyzine. Continue PRN ativan based on CIWA scores. (8) DVT prophylaxis: Current visit: Yes Status: Acute Encourage oral intake and ambulation. (9) Discharge planning issues: Current visit: Yes Status: Acute She is a FULL code. She verbalizes interest in maintaining sobriety. She is planning to attend AA meetings and latter day regularly upon discharge. She has a new AA sponsor. She is reluctant to attend the outpatient program in her area. This case was discussed with Dr. Woodward who is in agreement. Subjective Interval history since last seen: Brooke Hyde is a 37 year-old female with PMHx of alcohol abuse with prior history of DT's and alcohol withdrawal seizures, who normally consumes 1/2 of a gallon of vodka per day, also with history of alcoholic neuropathy, anxiety and depression who is currently admitted for alcohol withdrawal. She was also noted to have hypoglycemia in the ED with a glucose level of 49. She had a temperature of 38.1 two nights ago. Her UA was not suspicious for infection. No associated leukocytosis. No further fevers, possibly related to atelectasis. Brooke's CIWA scores were trending up overnight. She scored 11 this morning. She is now started on scheduled librium in addition to the PRN ativan per CIWA protocol. She reports that she was dreaming all night and talking in her sleep, which awakened her. She does not think she was hallucinating. She continues to feel tremulous, especially inside. She was diaphoretic last night. She continues to have a frontal headache intermittently, tylenol helps. She had leg cramps last night but they are better today. She continues to have nicotine cravings. She took a shower today. She is using an incentive spirometer regularly. She denies chest pain/pressure, palpitations, shortness of breath, cough, wheezing, she is eating and drinking some, her appetite is poor, she remains nauseated, zofran helps. She has not had a bowel movement. Exam Narrative Exam Narrative: General: female, sitting at the edge of bed, just returned from shower, mildly tremulous Neurological: Awake, alert and oriented x3, no focal deficits Psychiatric: pleasant, cooperative, appropriate Skin: abrasions to left hand, healing, bruising to dorsal aspect of right hand improving. HEENT: normocephalic, atraumatic, pupils are equal and round, mucous membranes moist. Neck: no JVD Cardiovascular: RRR, non-tachycardic, no murmur, rubs, or gallops Lungs: respirations even and unlabored, lung sounds clear to auscultation throughout. Gastrointestinal: abdomen soft, nontender, nondistended Extremities: Hands remain swollen bilaterally but improved. No clubbing, cyanosis or edema of bilateral lower extremities, peripheral pulses palpable. Objective Objective Clinical Data: Vital Signs Temperature 36.7 C 08/14/18 08:34 Temperature Source Tympanic 08/14/18 08:34 Pulse 91 H 08/14/18 08:34 Pulse Rhythm Regular 08/14/18 08:05 Pulse 115 H 08/12/18 12:32 Respiratory Rate 18 08/14/18 08:34 Respiratory Effort Non-Labored 08/14/18 08:05 Respiratory Depth Normal 08/14/18 08:05 Respiratory Pattern Normal 08/14/18 08:05 Blood Pressure 113/80 08/14/18 08:34 Blood Pressure Mean 88 08/12/18 12:31 Pulse Oximetry 100 08/14/18 08:34 Oxygen Delivery Method Room Air 08/14/18 08:34 Oxygen Flow Rate 0 08/14/18 08:34 Pain Level 4 08/14/18 08:14 Comment 08/14/18 03:35 Intake & Output 08/13/18 08/14/18 08/14/18 23:59 11:59 23:59 Intake Total 960 / 960 490 / 490 Output Total 2099 1300 / 1300 Balance -1140 / -1140 -810 / -810 Weight 65 kg Intake: IV Oral 960 / 960 480 / 480 Output: Urine 2099 1300 / 1300 Other: Urine Color Yellow Straw Urine Appearance Clear Clear Urine Odor Normal Normal Voiding Methods Toilet Toilet Laboratory Results WBC 3.55 k/cumm (4.4-10.8) L D 08/13/18 06:25 RBC 3.76 m/cumm (4.00-5.20) L 08/13/18 06:25 Hgb 12.1 g/dL (12.0-15.5) 08/13/18 06:25 Hct 36.3 % (36.0-46.0) 08/13/18 06:25 MCV 96.5 fL (80-95) H 08/13/18 06:25 MCH 32.2 pg (27.0-33.0) 08/13/18 06:25 MCHC 33.3 g/dL (32.0-36.0) 08/13/18 06:25 RDW 12.5 % (11.7-14.6) 08/13/18 06:25 Plt Count 140 x1000/uL (130-400) 08/13/18 06:25 MPV 9.1 fL (8.0-11.0) 08/13/18 06:25 Immature Gran % 0.2 08/12/18 10:20 Neutrophils % 71.9 08/12/18 10:20 Lymphocytes % 20.6 08/12/18 10:20 Monocytes % 7.1 08/12/18 10:20 Eosinophils % 0.0 08/12/18 10:20 Basophils % 0.2 08/12/18 10:20 Absolute Neutrophils 4.36 k/cumm (1.2-6.7) 08/12/18 10:20 Absolute Lymphocytes 1.25 k/cumm (1.2-3.4) 08/12/18 10:20 Absolute Monocytes 0.43 k/cumm (0.11-0.7) 08/12/18 10:20 Absolute Eosinophils 0.00 k/cumm (0.0-0.7) 08/12/18 10:20 Absolute Basophils 0.01 k/cumm (0.0-0.2) 08/12/18 10:20 Sodium 138 mmol/L (136-145) 08/14/18 07:30 Potassium 4.0 mmol/L (3.5-5.1) 08/14/18 07:30 Chloride 103 mmol/L (98-107) 08/14/18 07:30 Carbon Dioxide 25.7 mmol/L (21.0-32.0) 08/14/18 07:30 Anion Gap 9.3 mmol/L (3-11) 08/14/18 07:30 BUN 7 mg/dL (7-18) 08/14/18 07:30 Creatinine 0.69 mg/dL (0.55-1.02) 08/14/18 07:30 Estimated GFR/1.73 m2 >= 60.00 (mL/min/1.73m2) 08/14/18 07:30 Glucose 85 mg/dL (70-100) 08/14/18 07:30 Calcium 8.9 mg/dL (8.5-10.1) 08/14/18 07:30 Magnesium 2.0 mg/dL (1.8-2.4) 08/13/18 06:25 Total Bilirubin 0.8 mg/dL (0.2-1.0) 08/13/18 06:25 Conjugated Bilirubin 0.16 mg/dL (0.00-0.20) 08/13/18 06:25 AST 23 U/L (15-37) 08/13/18 06:25 ALT 19 U/L (12-78) 08/13/18 06:25 Alkaline Phosphatase 83 U/L (46-116) 08/13/18 06:25 Troponin I < 0.02 ng/mL (0.00-0.06) 08/12/18 10:20 Total Protein 6.1 g/dL (6.4-8.2) L 08/13/18 06:25 Albumin 3.1 g/dL (3.4-5.0) L 08/13/18 06:25 Lipase 72 U/L (73-393) L 08/12/18 10:20 Vitamin B12 417 pg/mL (193-986) 08/13/18 06:25 Folate 16.0 ng/mL (8.6-20.0) 08/13/18 06:25 Serum HCG, Qual Cancelled 08/12/18 11:32 Urine Color Yellow (Yellow) 08/13/18 20:45 Urine Clarity Clear 08/13/18 20:45 Urine pH 7.0 (5-8) 08/13/18 20:45 Ur Specific [place] 1.015 (1.005-1.025) 08/13/18 20:45 Urine Protein Negative mg/dL (Negative) 08/13/18 20:45 Urine Ketones Negative mg/dL (Negative) 08/13/18 20:45 Urine Blood Negative (Negative) 08/13/18 20:45 Urine Nitrite Negative (Negative) 08/13/18 20:45 Urine Bilirubin Negative (Negative) 08/13/18 20:45 Urine Urobilinogen 0.2 EU/dL (Up TO 0.2) 08/13/18 20:45 Ur Leukocyte Esterase Negative (Negative) 08/13/18 20:45 Urine RBC Negative (0-2) 08/12/18 12:00 Urine WBC Negative HPF (0-5) 08/12/18 12:00 Ur Epithelial Cells Few HPF (Negative) 08/12/18 12:00 Urine Crystals Negative HPF (Negative) 08/12/18 12:00 Urine Bacteria Negative HPF (Negative) 08/12/18 12:00 Urine Casts Negative LPF (Negative) 08/12/18 12:00 Urine Mucus Negative (Negative) 08/12/18 12:00 Ur Culture Indicated? No 08/12/18 12:00 Urine Glucose Negative mg/dL (Negative) 08/13/18 20:45 Ethyl Alcohol < 3.0 mg/dL (<3) 08/12/18 10:20
--- NOTE | 2018-08-14 14:02 | PDOC.CMPRO ---
- If Service Date Differs Date of service: 08/14/18 Time of Service: 14:02 Care Management Progress Note S/O:Brooke was up and showered today. She continues to be assessed using the CIWA scale and treated with Ativan and librium. No change in patients status today. When Brooke is discharged she will resume services and community supports established in the community. A:Brooke is a 37 year old female admitted with ETOH withdrawal. P:Brooke is currently receiving care on the medical surgical unit. She is being monitored for ETOH withdrawal and treatment with CIWA scale. Brooke will be discharged home when medically ready and resume community supports. Rescheduled primary care appointment for 08/21/18 at 11:00 with MAKENNA Ortega at [facility] [phone]. Discharge summay should be faxed to practice at time of discharge to [phone].
--- NOTE | 2018-08-14 14:16 | CMPROGNOTE_ITS ---
- If Service Date Differs Date of service: 08/14/18 Time of Service: 14:02 Care Management Progress Note S/O:Brooke was up and showered today. She continues to be assessed using the CIWA scale and treated with Ativan and librium. No change in patients status today. When Brooke is discharged she will resume services and community supports established in the community. A:Brooke is a 37 year old female admitted with ETOH withdrawal. P:Brooke is currently receiving care on the medical surgical unit. She is being monitored for ETOH withdrawal and treatment with CIWA scale. Brooke will be discharged home when medically ready and resume community supports. Rescheduled primary care appointment for 08/21/18 at 11:00 with MAKENNA Ortega at [facility] [phone]. Discharge summay should be faxed to practice at time of discharge to [phone].
--- NOTE | 2018-08-14 15:07 | CHAPLAIN ---
Brooke said her nurse took her to the lobby to get some books from the [employer]. She is hoping her mom will bring her knitting. She is working on knitting hat for 12 nieces and nephews. Brooke said she thinks she'll be here longer than she originally hoped, but may be discharged tomorrow.
[2018-08-14] MEDS: hydrOXYzine HCL 25 MG TAB 50 MG PO (20:14)
[2018-08-14] MEDS: traZODone 100 MG TAB PO (22:08)
[2018-08-14] MEDS: Melatonin 3 MG TAB PO (22:08)
[2018-08-14] MEDS: DULoxetine 30 MG CAP 60 MG PO (22:09)
[2018-08-14] MEDS: Docusate Sodium 100 MG CAP PO (22:09)
[2018-08-15] VITALS (11 sets, daily range): BP systolic 92–123; BP diastolic 64–73; PULSE 70–100; RESP 16–18; TEMP 36.2–37.8; O2SAT 95–100
[2018-08-15] MEDS: Acetaminophen 325 MG TAB PO ×3 (02:23→20:31)
[2018-08-15] MEDS: LORazepam 1 MG TAB PO/SL ×2 (02:23→05:46)
[2018-08-15] MEDS: Ondansetron 4 MG/2 ML VIAL IVP (05:49)
[2018-08-15] MEDS: Normal Saline Flush 10 ML SYR IVP ×4 (05:50→20:29)
[2018-08-15 07:16] LABS: HCT 39.3 % (36.0-46.0); HGB 12.9 g/dL (12.0-15.5); Mean Corp. HGB Concentration 32.8 g/dL (32.0-36.0); Mean Corpuscular Hemoglobin 31.9 pg (27.0-33.0); Mean Platelet Volume 9.2 fL (8.0-11.0); Platelet Count 131 x1000/uL (130-400); RBC 4.05 m/cumm (4.00-5.20); RBC Distribution Width 12.3 % (11.7-14.6); White Blood Cell Count 3.53 k/cumm (4.4-10.8)
[2018-08-15 07:29] LABS: Anion Gap 10.3 mmol/L (3-11); BUN 15 mg/dL (7-18); CO2 25.7 mmol/L (21.0-32.0); CREATININE 0.72 mg/dL (0.55-1.02); Calcium 9.3 mg/dL (8.5-10.1); Chloride 101 mmol/L (98-107); Glucose 94 mg/dL (70-100); Magnesium 1.8 mg/dL (1.8-2.4); Potassium 4.4 mmol/L (3.5-5.1); Sodium 137 mmol/L (136-145)
[2018-08-15] MEDS: Vitamins B Comp w/C TAB 1 TAB PO (07:51)
[2018-08-15] MEDS: Folic Acid 1 MG TAB PO (07:51)
[2018-08-15] MEDS: Pregabalin 50 MG CAP 100 MG PO ×2 (07:52→20:32)
[2018-08-15] MEDS: Multivitamin TAB 1 TAB PO (07:52)
[2018-08-15] MEDS: Gabapentin 600 MG TAB PO ×3 (07:52→20:31)
[2018-08-15] MEDS: cloNIDine 0.1 MG TAB PO (07:52)
[2018-08-15] MEDS: DULoxetine 30 MG CAP PO (07:52)
[2018-08-15] MEDS: Thiamine 100 MG TAB PO (07:52)
[2018-08-15] MEDS: chlordiazePOXIDE 25 MG CAP PO ×3 (07:52→20:31)
[2018-08-15] MEDS: Nicotine 21 MG/24 HR PATCH TD (07:56)
[2018-08-15] MEDS: Patch Removal 1 EACH TP (08:00)
[2018-08-15] MEDS: Magnesium Lactate-SR 84 MG TABCR PO (08:50)
[2018-08-15 09:00] LABS: Troponin I 0.02 ng/mL (0.00-0.06)
[2018-08-15] MEDS: hydrOXYzine HCL 25 MG TAB 50 MG PO ×2 (09:55→20:31)
[2018-08-15] MEDS: LORazepam 1 MG TAB PO (09:55)
[2018-08-15] MEDS: Ketorolac 30 MG/ML VIAL IVP (11:32)
--- NOTE | 2018-08-15 12:11 | PGE_ITS ---
Date of Service Date of service: 08/15/18 Time of Service: 11:30 Assessment and Plan (1) Alcohol withdrawal: Current visit: Yes Status: Acute patient continues to be monitored on CIWA scale with ativan as needed. symptoms are improving. will continue thiamine/folic acid. cessation discussed. patient seems motivated to stay dry (2) Anxiety and depression: Current visit: Yes Status: Chronic stable, continue cymbalta and lyrica (3) Tobacco abuse counseling: Current visit: Yes Status: Acute (4) DVT prophylaxis: Current visit: Yes Status: Acute continue enoxaparin (5) Discharge planning issues: Current visit: Yes Status: Acute will discharge home when medically stable. case management following. (6) Headache: Current visit: Yes Status: Acute patient with typical headache per her report. neurologic exam is unremarkable. using acetaminophen with mild improvement. will give 1 liter of normal saline with 10 mg of compazine and 30 mg IV toradol and continue to monitor. Subjective Patient reports: feels better, nausea and other (headache 4/10) Interval history since last seen: this is a 37 year old female with known history of alcohol abuse with hospitalizations for withdrawal who presented to the ED from incarceration for public intoxication with complaints of alcohol withdrawal. She is currently taking scheduled librium and prn lorazepam requiring doses overnight for CIWA scores 11-14. She is currently saying that she feels her withdrawal symptoms are improved and resolving. her current complaint is of headache and mild nausea. she states she was able to tolerate breakfast and has not vomited and denies abdominal pain. She is hoping to shower but reported feeling lightheaded and was tachycardic to the 150's when out of bed earlier. Exam Narrative Exam Narrative: sitting up in bed working on knitting/crocheting a hat. Const General: cooperative and no acute distress Nutritional Appearance: average body habitus Orientation: alert, awake and oriented x3 HENMT Head: normal to inspection, normocephalic and atraumatic Mouth: abnormal oral mucosae (slightly dry, no exudate) Resp Effort & Inspection: normal respiratory effort Auscultation: clear to auscultation bilaterally Cardio Jugular venous pressure: no JVD Rate: regular rate Rhythm: regular rhythm GI Inspection: normal to inspection Palpation: soft Auscultation: normal bowel sounds Skin General skin exam: no rashes or lesions noted Neuro General: alert and oriented x3 Cognition: normal cognition Speech: speech normal Gait: normal gait Extrem General: normal to inspection and full ROM Psych Appearance: grossly normal Speech and Movement: speech and movement normal Mood: congruent mood Affect: blunted Attitude: cooperative Thought Process: normal Thought Content: normal Objective Objective Clinical Data: Abnormal lab results 08/15/18 Range/Units 06:55 WBC 3.53 L (4.4-10.8) k/cumm MCV 97.0 H (80-95) fL Vital Signs Temperature 37.8 C H 08/15/18 11:20 Temperature Source Tympanic 08/15/18 11:20 Pulse 91 H 08/15/18 11:20 Pulse Rhythm Regular 08/15/18 07:55 Pulse 115 H 08/12/18 12:32 Respiratory Rate 16 08/15/18 11:20 Respiratory Effort Non-Labored 08/15/18 07:55 Respiratory Depth Normal 08/15/18 07:55 Respiratory Pattern Normal 08/15/18 07:55 Blood Pressure 102/69 08/15/18 11:20 Blood Pressure Mean 88 08/12/18 12:31 Pulse Oximetry 98 08/15/18 11:20 Oxygen Delivery Method Room Air 08/15/18 11:20 Oxygen Flow Rate 0 08/15/18 11:20 Pain Level 5 08/15/18 06:37 Comment 08/14/18 03:35 Intake & Output 08/14/18 08/15/18 08/15/18 23:59 11:59 23:59 Intake Total 500 / 500 271 / 271 Balance 500 / 500 271 / 271 Weight 64.9 kg Intake: IV Oral 500 / 500 240 / 240 Other: Comment toilet x 1 UOP toilet x 1 Voiding Methods Toilet Laboratory Results WBC 3.53 k/cumm (4.4-10.8) L 08/15/18 06:55 RBC 4.05 m/cumm (4.00-5.20) 08/15/18 06:55 Hgb 12.9 g/dL (12.0-15.5) 08/15/18 06:55 Hct 39.3 % (36.0-46.0) 08/15/18 06:55 MCV 97.0 fL (80-95) H 08/15/18 06:55 MCH 31.9 pg (27.0-33.0) 08/15/18 06:55 MCHC 32.8 g/dL (32.0-36.0) 08/15/18 06:55 RDW 12.3 % (11.7-14.6) 08/15/18 06:55 Plt Count 131 x1000/uL (130-400) 08/15/18 06:55 MPV 9.2 fL (8.0-11.0) 08/15/18 06:55 Immature Gran % 0.2 08/12/18 10:20 Neutrophils % 71.9 08/12/18 10:20 Lymphocytes % 20.6 08/12/18 10:20 Monocytes % 7.1 08/12/18 10:20 Eosinophils % 0.0 08/12/18 10:20 Basophils % 0.2 08/12/18 10:20 Absolute Neutrophils 4.36 k/cumm (1.2-6.7) 08/12/18 10:20 Absolute Lymphocytes 1.25 k/cumm (1.2-3.4) 08/12/18 10:20 Absolute Monocytes 0.43 k/cumm (0.11-0.7) 08/12/18 10:20 Absolute Eosinophils 0.00 k/cumm (0.0-0.7) 08/12/18 10:20 Absolute Basophils 0.01 k/cumm (0.0-0.2) 08/12/18 10:20 Sodium 137 mmol/L (136-145) 08/15/18 06:55 Potassium 4.4 mmol/L (3.5-5.1) 08/15/18 06:55 Chloride 101 mmol/L (98-107) 08/15/18 06:55 Carbon Dioxide 25.7 mmol/L (21.0-32.0) 08/15/18 06:55 Anion Gap 10.3 mmol/L (3-11) 08/15/18 06:55 BUN 15 mg/dL (7-18) D 08/15/18 06:55 Creatinine 0.72 mg/dL (0.55-1.02) 08/15/18 06:55 Estimated GFR/1.73 m2 >= 60.00 (mL/min/1.73m2) 08/15/18 06:55 Glucose 94 mg/dL (70-100) 08/15/18 06:55 Calcium 9.3 mg/dL (8.5-10.1) 08/15/18 06:55 Magnesium 1.8 mg/dL (1.8-2.4) 08/15/18 06:55 Total Bilirubin 0.8 mg/dL (0.2-1.0) 08/13/18 06:25 Conjugated Bilirubin 0.16 mg/dL (0.00-0.20) 08/13/18 06:25 AST 23 U/L (15-37) 08/13/18 06:25 ALT 19 U/L (12-78) 08/13/18 06:25 Alkaline Phosphatase 83 U/L (46-116) 08/13/18 06:25 Troponin I 0.02 ng/mL (0.00-0.06) 08/15/18 06:55 Total Protein 6.1 g/dL (6.4-8.2) L 08/13/18 06:25 Albumin 3.1 g/dL (3.4-5.0) L 08/13/18 06:25 Lipase 72 U/L (73-393) L 08/12/18 10:20 Vitamin B12 417 pg/mL (193-986) 08/13/18 06:25 Folate 16.0 ng/mL (8.6-20.0) 08/13/18 06:25 Serum HCG, Qual Cancelled 08/12/18 11:32 Urine Color Yellow (Yellow) 08/13/18 20:45 Urine Clarity Clear 08/13/18 20:45 Urine pH 7.0 (5-8) 08/13/18 20:45 Ur Specific [place] 1.015 (1.005-1.025) 08/13/18 20:45 Urine Protein Negative mg/dL (Negative) 08/13/18 20:45 Urine Ketones Negative mg/dL (Negative) 08/13/18 20:45 Urine Blood Negative (Negative) 08/13/18 20:45 Urine Nitrite Negative (Negative) 08/13/18 20:45 Urine Bilirubin Negative (Negative) 08/13/18 20:45 Urine Urobilinogen 0.2 EU/dL (Up TO 0.2) 08/13/18 20:45 Ur Leukocyte Esterase Negative (Negative) 08/13/18 20:45 Urine RBC Negative (0-2) 08/12/18 12:00 Urine WBC Negative HPF (0-5) 08/12/18 12:00 Ur Epithelial Cells Few HPF (Negative) 08/12/18 12:00 Urine Crystals Negative HPF (Negative) 08/12/18 12:00 Urine Bacteria Negative HPF (Negative) 08/12/18 12:00 Urine Casts Negative LPF (Negative) 08/12/18 12:00 Urine Mucus Negative (Negative) 08/12/18 12:00 Ur Culture Indicated? No 08/12/18 12:00 Urine Glucose Negative mg/dL (Negative) 08/13/18 20:45 Ethyl Alcohol < 3.0 mg/dL (<3) 08/12/18 10:20
--- NOTE | 2018-08-15 13:44 | PDOC.CMPRO ---
Care Management Progress Note S/O: Brooke continues to be assessed using the CIWA scale and continues to score high numbers though is showing signs of improvement per provider. Brooke reports struggling with ongoing nausea and headache as well. No anticipated change in patients status today though ICU status was discussed this morning. When Brooke is discharged she will resume services and community supports established in the community. No change to overall plan. A:Brooke is a 37 year old female admitted to [facility] 08/12/18 with ETOH withdrawal. P: Brooke is currently receiving care on the medical surgical unit. She is being monitored for ETOH withdrawal and treatment with CIWA scale. She will continue to be provided sobriety materials for review. Brooke will be discharged home when medically ready and resume community supports. Rescheduled primary care appointment for 08/21/18 at 11:00 with MAKENNA Ortega at [facility] [phone]. Discharge summary will be faxed to practice at time of discharge to [phone].
[2018-08-15] MEDS: Normal Saline 1,000 ML 125 ML IV ×2 (14:10→22:30)
--- NOTE | 2018-08-15 14:16 | CMPROGNOTE_ITS ---
Care Management Progress Note S/O: Brooke continues to be assessed using the CIWA scale and continues to score high numbers though is showing signs of improvement per provider. Brooke reports struggling with ongoing nausea and headache as well. No anticipated change in patients status today though ICU status was discussed this morning. When Brooke is discharged she will resume services and community supports established in the community. No change to overall plan. A:Brooke is a 37 year old female admitted to [facility] 08/12/18 with ETOH withdrawal. P: Brooke is currently receiving care on the medical surgical unit. She is being monitored for ETOH withdrawal and treatment with CIWA scale. She will continue to be provided sobriety materials for review. Brooke will be discharged home when medically ready and resume community supports. Rescheduled primary care appointment for 08/21/18 at 11:00 with MAKENNA Ortega at [facility] [phone]. Discharge summary will be faxed to practice at time of discharge to [phone].
[2018-08-15] MEDS: Melatonin 3 MG TAB PO (22:29)
[2018-08-15] MEDS: DULoxetine 30 MG CAP 60 MG PO (22:29)
[2018-08-15] MEDS: Polyethylene Glycol 3350 17 GM PACKET PO (22:29)
[2018-08-15] MEDS: Docusate Sodium 100 MG CAP PO (22:29)
[2018-08-15] MEDS: traZODone 100 MG TAB PO (22:29)
[2018-08-16 04:37] VITALS: BP 95/63; PULSE 78; RESP 18; TEMP 36.3; O2SAT 98
[2018-08-16 07:11] LABS: Abs Immature Grans 0.01 k/cumm (0.0-0.09); Absolute Basophil Count 0.01 k/cumm (0.0-0.2); Absolute Eosinophil Count 0.13 k/cumm (0.0-0.7); Absolute Lymphocyte Count 1.94 k/cumm (1.2-3.4); Absolute Monocyte Count 0.32 k/cumm (0.11-0.7); Basophils % 0.3; Eosinophils % 3.3; HCT 36.5 % (36.0-46.0); HGB 11.8 g/dL (12.0-15.5); Immature Grans % 0.3; Mean Corp. HGB Concentration 32.3 g/dL (32.0-36.0); Mean Corpuscular Volume 98.9 fL (80-95); Mean Platelet Volume 9.7 fL (8.0-11.0); Monocytes % 8.1; Platelet Count 133 x1000/uL (130-400); RBC 3.69 m/cumm (4.00-5.20); RBC Distribution Width 12.3 % (11.7-14.6); White Blood Cell Count 3.96 k/cumm (4.4-10.8)
[2018-08-16 07:15] VITALS: BP 86/56; PULSE 86; RESP 16; TEMP 36.1; O2SAT 99
[2018-08-16 07:15] LABS: Absolute Neutrophil Count 1.54 k/cumm (1.2-6.7); Anion Gap 10.4 mmol/L (3-11); BUN 16 mg/dL (7-18); CO2 23.6 mmol/L (21.0-32.0); CREATININE 0.59 mg/dL (0.55-1.02); Calcium 8.1 mg/dL (8.5-10.1); Chloride 104 mmol/L (98-107); Glucose 98 mg/dL (70-100); Magnesium 1.6 mg/dL (1.8-2.4); Potassium 4.3 mmol/L (3.5-5.1); Sodium 138 mmol/L (136-145)
[2018-08-16 07:21] VITALS: PULSE 83
[2018-08-16] MEDS: Nicotine 21 MG/24 HR PATCH TD (07:36)
[2018-08-16] MEDS: DULoxetine 30 MG CAP PO (07:37)
[2018-08-16] MEDS: Vitamins B Comp w/C TAB 1 TAB PO (07:37)
[2018-08-16] MEDS: Folic Acid 1 MG TAB PO (07:37)
[2018-08-16] MEDS: chlordiazePOXIDE 25 MG CAP PO (07:37)
[2018-08-16] MEDS: Acetaminophen 325 MG TAB PO (07:37)
[2018-08-16] MEDS: Patch Removal 1 EACH TP (07:37)
[2018-08-16] MEDS: Thiamine 100 MG TAB PO (07:37)
[2018-08-16] MEDS: Pregabalin 50 MG CAP 100 MG PO (07:38)
[2018-08-16] MEDS: Multivitamin TAB 1 TAB PO (07:38)
[2018-08-16] MEDS: Gabapentin 600 MG TAB PO (07:38)
[2018-08-16] MEDS: Magnesium Lactate-SR 84 MG TABCR PO (08:59)
[2018-08-16] MEDS: Polyethylene Glycol 3350 17 GM PACKET PO (10:23)
[2018-08-16] MEDS: Docusate Sodium 100 MG CAP PO (10:23)
--- NOTE | 2018-08-16 11:20 | W.PM.DS.N ---
Date of service: 08/16/18 Time of Service: 10:45 DS: Diagnosis Discharge Diagnosis (1) Alcohol withdrawal: Status: Acute (2) Anxiety and depression: Status: Chronic (3) Tobacco abuse counseling: Status: Acute (4) DVT prophylaxis: Status: Acute (5) Discharge planning issues: Status: Acute (6) Headache: Status: Acute Discharge Plan Disposition Patient Disposition: HOME Condition: Fair Discharge Details Reason For Visit: ALCOHOL WITHDRAWL Admit Date/Time: 08/12/18 11:43 Admit Provider: Cielo Woodward Attending Provider: Cielo Woodward Primary Care Provider: DALLAS A[facility] Hospital Course: This is a 37 year-old female with PMHx of alcohol abuse with prior history of DT's and alcohol withdrawal seizures, who normally consumes 1/2 of a gallon of vodka per day and last had a drink 2 days prior to presentation, who also has a history of alcoholic neuropathy, anxiety and depression (for which she is on disability), who was brought in to [facility] ED from [facility] because the patient was noted to be going into alcohol withdrawal. On arrival to ED, the patient was diaphoretic, anxious, tremulous, nauseated. It is unclear, however, whether all of this was due to withdrawal because at the time her blood glucose level was 49. She felt better after a combination of ativan as well as food and IV fluids. She was admitted to the hospitalist services for monitoring during alcohol withdrawal, as she is at a high risk of having withdrawal seizures. While on the medical surgical unit she was maintained on CIWA protocol. She received scheduled librium and prn ativan for symptoms. She did not experience any DT's or withdrawal seizures. Her symptoms slowly improved and she is no longer shaky or nauseated. She is experiencing chronic levels of anxiety and mild headache today which is typical for her. She states she is not having any symptoms of withdrawal and is requesting discharge to home. Her magnesium has been replaced orally and she is tolerating a regular diet. She states she is motivated to stop drinking and that her mother will be a good support to keep her on track. She is planning to continue with outpatient recovery program and to attend AA meetings. She states she will establish with a sponsor to assist her with the process. She is well informed of services available and declines any additional resources. She will follow up outpatient as scheduled. Home Meds and New Rx's Prescriptions: Continue trazodone 100 mg Tablet 100 mg PO HS RF: 0 multivitamin Tablet 1 tab PO DAILY RF: 0 gabapentin 600 mg Tablet 600 mg PO TID RF: 0 hydroxyzine HCl 50 mg Tablet 50 mg PO TID PRN PRN (Reason: Anxiety) RF: 0 melatonin 3 mg Tablet 3 mg PO HS RF: 0 vitamin B complex Tablet 1 tab PO DAILY RF: 0 pregabalin [Lyrica] 100 mg Capsule 100 mg PO BID RF: 0 duloxetine [Cymbalta] 30 mg Capsule,Delayed Release(Dr/Ec) 30 mg PO DAILY RF: 0 duloxetine [Cymbalta] 60 mg Capsule,Delayed Release(Dr/Ec) 60 mg PO HS RF: 0 clonidine HCl 0.1 mg Tablet 0.1 mg PO BID RF: 0 Discharge Instructions Instructions: Abuse of Alcohol (DC) Additional Instructions: Stop using alcohol. Attend recovery program, AA, and establish sponsor for support as planned. Resume usual medications as directed. Care Plan Goals: Appointment scheduled for hospital follow up with MAKENNA Ortega on August 21 at 11:00 am. Continued community supports [facility] case management Chika Robertson RN. Stand Alone Forms: Nursing Discharge Form Referrals: FRANKLIN CONTRERAS [Other] - 08/21/18 11:00 am Activity:: Activity as Tolerated Equipment/Supplies:: No Equipment Needed Diet:: As Tolerated Discharge Orders Discharge Orders: Discharge Order (Routine); Ordered 08/16/18 Ordered By: Sofía Mays DS: Data Vitals/I&O Vitals and I&O: Vital Signs Temperature 36.1 C L 08/16/18 07:15 Temperature Source Tympanic 08/16/18 07:15 Pulse 83 08/16/18 07:21 Pulse Rhythm Regular 08/16/18 07:35 Pulse 115 H 08/12/18 12:32 Respiratory Rate 16 08/16/18 07:15 Respiratory Effort Non-Labored 08/16/18 07:35 Respiratory Depth Normal 08/16/18 07:35 Respiratory Pattern Normal 08/16/18 07:35 Blood Pressure 86/56 L 08/16/18 07:15 Blood Pressure Mean 88 08/12/18 12:31 Pulse Oximetry 99 08/16/18 07:15 Oxygen Delivery Method Room Air 08/16/18 07:15 Oxygen Flow Rate 0 08/16/18 07:15 Pain Level 2 08/15/18 20:31 Comment 08/14/18 03:35 Intake & Output 08/15/18 08/15/18 08/16/18 11:59 23:59 11:59 Intake Total 771 / 771 2602.000 / 2602.000 1140 / 1140 Balance 771 / 771 2602.000 / 2602.000 1140 / 1140 Weight 64.9 kg Intake: IV 2001.000 / 2001.000 900 / 900 Oral 740 / 740 600 / 600 240 / 240 Other: Comment UOP toilet x 1 Voiding Methods Toilet Toilet Labs on day of discharge: Labs from last 24 hours 08/16/18 08/16/18 06:50 06:50 WBC 3.96 L RBC 3.69 L Hgb 11.8 L Hct 36.5 MCV 98.9 H MCH 32.0 MCHC 32.3 RDW 12.3 Plt Count 133 MPV 9.7 Immature Gran % 0.3 Neutrophils % 39.0 Lymphocytes % 49.0 Monocytes % 8.1 Eosinophils % 3.3 Basophils % 0.3 Absolute Neutrophils 1.54 Absolute Lymphocytes 1.94 Absolute Monocytes 0.32 Absolute Eosinophils 0.13 Absolute Basophils 0.01 Sodium 138 Potassium 4.3 Chloride 104 Carbon Dioxide 23.6 Anion Gap 10.4 BUN 16 Creatinine 0.59 Estimated GFR/1.73 m2 >= 60.00 Glucose 98 Calcium 8.1 L Magnesium 1.6 L PFSH Alcohol abuse (Chronic) Tobacco abuse (Chronic) TBI (traumatic brain injury) (Chronic) Cerebral hemorrhage following injury (Resolved) Seizure due to alcohol withdrawal (Resolved) Alcoholic peripheral neuropathy (Chronic) Alcohol withdrawal (Acute) Paresthesia (Chronic) Alcoholism (Chronic) Alcohol withdrawal seizure (Resolved) Family History Father Alcohol abuse Coronary artery disease Mother Alcohol abuse Paternal Grandmother Diabetes Stroke Breast cancer History of (Chronic) History of (Resolved) Social History lives independently: Yes number of children: 1 current occupational status: disabled pets and animals: Yes pets and animals: cat(s) Smoking/Tobacco Use Status: Current every day tobacco type: cigarettes alcohol intake: current alcohol intake frequency: 3 or more drinks per day Alcohol type: hard liquor counseling given: Yes details: 1/2 of a gallon of vodka daily; just had a stay at inpatient rehab substance use type: does not use
[2018-08-16 11:30] VITALS: BP 96/54; PULSE 92; RESP 16; TEMP 36.3; O2SAT 99
--- NOTE | 2018-08-16 11:53 | CMDISCH_ITS ---
LACE Index Scoring Tool - Questions: Length of Stay (in days): 4 - 6 Acuity (Admit via E.D.?): Yes E.D. Visits: 3 - Answers: Total Score: 10 Risk of Readmission: High Risk Care Management Discharge Reason for Hospitalization: ETOH withdrawal, hypoglycemia Discharge Plan: Brooke is currently receiving care on the medical surgical unit. She is being monitored for ETOH withdrawal and treatment with CIWA scale. She will continue to be provided sobriety materials for review. Brooke will be discharged home when medically ready and resume community supports. Rescheduled primary care appointment for 08/21/18 at 11:00 with MAKENNA Ortega at [facility] [phone]. Discharge summary will be faxed to practice at time of discharge to [phone]. Patient/Family Education Needs: Review discharge instructions, discuss self care needs upon discharge, Ask Me Three. Services Needed at Discharge: Outpatient Therapy (IOP, Counseling )
[2018-08-16 11:55] VITALS: PULSE 106
== END 2018-08-16 12:29 | disposition home or self-care (01) | DRG 897 ==
LOC: ER 12:13 → MS 14:42
PROVIDERS: Nurse Practitioner; Admitting Provider Internal Medicine; Emergency Provider Physician Assistant; PCP Family Medicine; Visit Provider Internal Medicine
DX: F10.239 Alcohol dependence with withdrawal, unspecified (principal); E87.2 Acidosis; G62.1 Alcoholic polyneuropathy; F41.8 Other specified anxiety disorders; E16.1 Other hypoglycemia; E83.42 Hypomagnesemia; F17.210 Nicotine dependence, cigarettes, uncomplicated; R51 Headache
CPT/HCPCS: 36415; 36416; 80048; 80053; 80076; 81025; 82962; 83690; 85027; 93005; 96372; 96374; 96375; 99223; 99232; 99233; 99238; 99285; 80320; 81003; 81015; 82607; 82746; 83735; 84484; 84703; 85025; 93010; J0780; J1885; J2060; J2405; J3475; J3490; J7042